=== PATIENT | male | born 1940 | race Caucasian/White ===

== ENCOUNTER 2016-09-25 12:45 | Inpatient (IN) | payer MEDICARE ==
[~2016-09-25] VITALS: Ht 175.3 cm; Wt 82.7 kg
[~2016-09-25 12:45] MED LIST: ASPI81TA81 PO; HYDR-3366 PO; HYDR2TAB PO; METF1000 PO
[2016-10-06] MEDS ORDERED: NEOSTIGMINE 3 MG/3 ML SYR IV ONE (08:18)
[2016-10-06] MEDS ORDERED: PROPOFOL 200 MG/20 ML AMP IV ONE (08:18)
[2016-10-06] MEDS ORDERED: LACTATED RINGER'S 1000 ML INJ 1,000 ML IV ONE (08:22)
[2016-10-06] MEDS ORDERED: PHENYLEPH/NS 1000 MCG/10 ML SYR IV ONE (08:22)
[2016-10-06] MEDS ORDERED: ONDANSETRON HCL 4 MG/2 ML VIAL IV PUSH ONE (08:22)
[2016-10-06] MEDS ORDERED: NORMOSOL R INJ 1,000 ML IV ONE (08:23)
[2016-10-06] MEDS ORDERED: SODIUM CHLORID 0.9% 500 ML INJ 500 ML IV ONE (08:23)
[2016-10-06 09:14] VITALS: BP 108/78; PULSE 95; RESP 18; TEMP 97.6; O2SAT 95
[2016-10-06] MEDS ORDERED: POVIDONE IODINE 5% (ANTISEPSIS KIT) 4 APPLICATIONS EACH NARE PRN (09:15)
[2016-10-06] MEDS ORDERED: ceFAZolin 1,000 MG/NS 100 ML IV SCH ×2 (09:15)
[2016-10-06] MEDS: LACTATED RINGER'S 1000 ML INJ 1,000 ML IV SCH (09:15)
[2016-10-06] MEDS ORDERED: LACTATED RINGER'S 1000 ML IV PRN (09:15)
[2016-10-06] MEDS ORDERED: CHLORHEXIDINE GLUCONATE 2 % 1 PACK (2 CLOTHS) TOPICAL PRN (09:15)
[2016-10-06] MEDS ORDERED: INSULIN HUMAN REGULAR 1,000 UNITS/10 ML VIAL SQ PRN (09:15)
[2016-10-06] MEDS ORDERED: METOPROLOL TARTRATE 25 MG TAB PO PRN (09:15)
[2016-10-06] MEDS ORDERED: SODIUM CHLORID 0.9% 500 ML IV PRN (09:15)
[2016-10-06] MEDS ORDERED: GELFOAM SIZE 100 ONE (13:50)
[2016-10-06] MEDS ORDERED: THROMBIN (TOPICAL) 5,000 UNIT VIAL ONE (13:50)
[2016-10-06] MEDS ORDERED: GENTAMICIN SULFATE 80 MG/2 ML VIAL ONE (13:51)
[2016-10-06] MEDS ORDERED: MIDAZOLAM HCL 2 MG/2 ML VIAL ONE (13:54)
[2016-10-06] MEDS ORDERED: FAMOTIDINE 20 MG/2 ML VIAL ONE (13:55)
[2016-10-06] MEDS ORDERED: fentaNYL CITRATE 250 MCG/5 ML AMP ONE (13:55)
[2016-10-06] MEDS ORDERED: HYDROmorphone HCL PF 2 MG/ML VIAL ONE (13:55)
[2016-10-06] MEDS ORDERED: ACETAMINOPHEN 1000 MG/100 ML VIAL IV ONE (13:56)
[2016-10-06] MEDS ORDERED: LIDOCAINE 1%/EPINEPHrine 1:100,000 SOLN 30 ML VIAL INFIL ONE (15:17)
[2016-10-06] MEDS ORDERED: ceFAZolin INJ 1,000 MG VIAL IV ONE (15:45)
[2016-10-06] MEDS ORDERED: SODIUM CHLORIDE 0.9% FLUSH 5 ML FLUSH IV FLUSH PRN (17:30)
[2016-10-06] MEDS ORDERED: NALOXONE HCL 0.4 MG/ML AMP IV PUSH PRN (17:30)
[2016-10-06] MEDS ORDERED: ONDANSETRON HCL 4 MG/2 ML VIAL IV PUSH PRN (17:30)
[2016-10-06] MEDS ORDERED: GLUCAGON 1 MG/ML VIAL OTHER PRN (17:45)
[2016-10-06] MEDS ORDERED: DEXTROSE 50% IN WATER 50 ML VIAL(D50) IV PRN (17:45)
--- NOTE | 2016-10-06 19:38 | RADRPT ---
EXAM DATE/TIME: 10/06/2016 15:07 [facility] COMPARISON: No previous studies available for comparison. INDICATIONS : Lumbar spine L4-5 PLIF. OR. MEDICAL HISTORY : None. SURGICAL HISTORY : CABG. ENCOUNTER: Initial ACUITY: 1 day PAIN SCORE: Non-responsive. LOCATION: Lumbar L4-5 FINDINGS: 2 views in the operating room show fusion procedure with interbody and posterior instrumentation at L 4/L5. Alignment is within normal limits. No fracture. No evidence of hardware failure. CONCLUSION: Fusion procedure at C4/C5 without evidence of an acute complication. Ari Barnett MD on October 06, 2016 at 19:35 Board Certified Radiologist. This report was verified electronically.
[2016-10-06] MEDS ORDERED: NALOXONE HCL 0.4 MG/ML AMP IV PRN (20:00)
[2016-10-06] MEDS ORDERED: oxyCODONE/ACETAMINOPHEN 5 MG/325 MG TAB PO PRN (20:00)
[2016-10-06] MEDS ORDERED: MORPHINE SULFATE 4 MG/ML INJ IV PRN (20:00)
[2016-10-06] MEDS ORDERED: HYDROmorphone HCL PF 1 MG/ML VIAL IV PRN (20:00)
[2016-10-06] MEDS: 1/2 NS + KCL 20 MEQ INJ 1,000 ML IV SCH (20:05)
[2016-10-06] MEDS ORDERED: *morphine SULFATE 8 MG/ML PERIprocedure ONLY ONE ×2 (20:10→20:22)
[2016-10-06] MEDS ORDERED: DO NOT ADM ANY ANTICOAGULANT DRUGS PRN (20:15)
--- NOTE | 2016-10-06 20:24 | PD.OP ---
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 Bilateral L4-5 decompressive semi-laminectomy, medial facetectomy, foraminotomy 2. Resection large right L4 5 sequestered herniated nucleus pulposus 3. Right L4 5 lysis of adhesions from previous surgery 4. L4 5 interbody fusion, PEEK cage, lamina autograft and demineralized bone matrix. 5. Bilateral L4-5 posterior instrumentation with pedicle screw fixation Anesthesia: Gen. Surgeon: Jono Werner [employer]): [employer] Martinez Operation and Findings: Findings: Extensive adhesions along the dorsal lateral thecal sac at the right L4 5 level at the previous semi-laminectomy site. Large extensive L4 5 sequestered herniated nucleus pulposus causing significant compression on the right ventral lateral thecal sac and exiting L5 nerve root. Significant right L4 5 facet instability with partial facet resection from prior decompressive semi-laminectomy. Procedure in detail The patient was brought to the operating room and general endotracheal anesthesia induced without difficulty Lines were established per Anesthesia Sequential compression devices were in place The patient was positioned prone on the concentric Alexander table with the side bolsters and all extremities appropriately padded Leads for intraoperative neuro monitoring were placed prior to positioning and a baseline study obtained Appropriate timeout procedure was performed with all personnel present and in agreement The lumbar region was shaved with clippers and sterilely prepped and draped 1% Xylocaine with epinephrine was used for local infiltration over the incision site which was made approximately 5.5 cm lateral to the midline at the bilateral level and carried sharply down to the fascia. The fascia was sharply incised and finger dissection was used to separate the normal intermuscular plane at the bilateral L4 5 level, allowing direct palpation of the junction of the and pedicle and transverse process on each side. The entry point for the pedicle screws were determined by anatomic and radiographic landmarks. Using AP and lateral C-arm imaging, the Jamshidi needle was guided through the bilateral L4 and L5 pedicle. The intraoperative C-arm imaging was used to verify appropriate Jamshidi needle placement. The wires were then placed through the Jamshidi needle cannulas, and the cannula was withdrawn. The wires were temporarily clipped away from the operative field. On the right side Lomeli elevator was used for subperiosteal elevation of paraspinous musculature and fascia away from the lamina and spinous processes The deep self-retaining retractor was placed The appropriate levels were verified with intraoperative C-arm The microscope was moved into place and used for the remainder of the procedure including the closure The TPS drill with a 5 mm bone bur followed by the Kerrison rongeur was used to remove the inferior two thirds of the lamina at the cephalad level of the decompression and the superior third of the lamina at the caudal level of the decompression. This was performed starting on the right side, and then working across midline towards the left. The foraminotomy was performed on each side with the 2 and 3 mm Kerrison rongeur. On the side of the cage placement, an additional portion of the medial facet was removed to allow sufficient room for placement of the cage without significant retraction of the thecal sac and exiting nerve root. Hypertrophied ligamentum flavum was elevated away from the thecal sac and exiting nerve roots with the thin ligament dissector and resected with a 15 blade knife and Kerrison rongeur. The thecal sac and exiting nerve root were freed up from surrounding adhesions with the microdissectors and gently retracted medially revealing the underlying disc and annulus. There were extensive adhesions at the right L4 5 lateral thecal sac and exiting right L5 nerve root related to the previous surgical procedure. The extensive amount of careful dissection was required under the microscope to free up these adhesions and resect the ligamentum flavum. Extensive amount of sequestered right L4 5 herniated disc material was noted and was carefully freed up from the ventral thecal sac and exiting right L5 and L4 nerve roots and removed with the micro-biopsy forceps. The right L4 5 annulus was incised with the 11 blade knife and discectomy performed with pituitary biopsy forceps and straight and angled curettes The endplate scrapers were used to decorticate the endplates and any remaining debris was removed with the antibiotic irrigation and suction and pituitary biopsy forceps The appropriate size 8 x 10 mm lordotic PEEK cage was packed with retained lamina cancellus autograft And a small amount of demineralized bone matrix The cage was placed at the L4 5 level with a good fit of the cage. The placement was checked under the microscope and with intraoperative C-arm and felt to be satisfactory. The thecal sac and nerve roots were probed with the long blunt nerve hook and felt to be well decompressed The cannulated 5.5 mm tap was then used to prepare the pedicle screw sites on each side, with the dilators used to protect the surrounding tissue. The appropriate length Spine Wave Sniper percutaneous cannulated pedicle screw attached to the MIS extenders were placed into the bilateral L4 and L5 pedicle using the existing guidewires which were then removed. Pedicle screw placement was checked with intraoperative C-arm imaging and felt to be satisfactory. The percutaneous rods were placed across the pedicle screws on each side. The locking caps were secured with the torque wrench and anti-torque device Compression and alignment were achieved as necessary with the rods and reducers. The entire construct was checked with intraoperative C-arm and felt to be satisfactory The region was well irrigated with antibiotic irrigation The posterior lateral structures at the bilateral L4 5 levels were decorticated with the TPS drill The shavings were left in place, to which was added the remaining autograft and allograft bone which was firmly packed in place for the posterior lateral fusion. The 7 mm flat fluted drain was left in place at the operative side and brought out through a incision at the upper lumbar region and secured to the skin with nylon suture and attached to sterile suction bleeding was carefully controlled with the bipolar forceps The closure was performed with 0 Vicryl interrupted for the deep and superficial fascia, with 3-0 Vicryl for the subcutaneous closure and 4-0 Vicryl running subcuticular closure. Dressings sterile Mastisol, Steri-Strips and Primapore was placed The patient was turned into supine position and taken to recovery room in stable condition All counts were correct at the end of the case Estimated blood loss was 200 cc No specimen was sent to pathology Neuro monitoring was stable during the procedure Jono Werner MD Oct 06, 2016 20:24
[2016-10-06] MEDS: SODIUM CHLORIDE 0.9% FLUSH 5 ML FLUSH IV FLUSH SCH (20:30)
[2016-10-06] MEDS: DOCUSATE SODIUM 100 MG CAP PO SCH (20:35)
[2016-10-06] MEDS: INSULIN ASPART SUPPLEMENTAL SCALE SQ SCH (20:38)
[2016-10-07 00:55] VITALS: BP 119/69; PULSE 73; RESP 18; TEMP 96.8; O2SAT 66
[2016-10-07] MEDS: ACETAMINOPHEN/HYDROcodone 325 MG/10 MG TAB PO PRN ×4 (03:05→20:40)
[2016-10-07 04:00] VITALS: BP 131/69; PULSE 77; RESP 16; TEMP 95.3; O2SAT 100
[2016-10-07] MEDS: PANTOPRAZOLE SOD 40 MG DELAYED RELEASE TAB PO SCH (05:24)
[2016-10-07] MEDS: 1/2 NS + KCL 20 MEQ INJ 1,000 ML IV SCH ×3 (05:25→23:30)
[2016-10-07] MEDS: INSULIN ASPART SUPPLEMENTAL SCALE SQ SCH ×4 (06:42→20:47)
[2016-10-07 08:00] VITALS: BP 119/64; PULSE 70; RESP 18; O2SAT 100
[2016-10-07] MEDS: metFORMIN HCL 500 MG TAB PO SCH ×2 (08:19→17:37)
[2016-10-07] MEDS: DOCUSATE SODIUM 100 MG CAP PO SCH ×2 (08:19→20:39)
[2016-10-07] MEDS: SODIUM CHLORIDE 0.9% FLUSH 5 ML FLUSH IV FLUSH SCH ×2 (08:28→20:40)
[2016-10-07] MEDS: LACTATED RINGER'S 1000 ML INJ 1,000 ML IV SCH (09:15)
[2016-10-07 12:00] VITALS: BP 103/59; PULSE 86; RESP 18; TEMP 96; O2SAT 96
--- NOTE | 2016-10-07 12:35 | HHI.NSPN ---
(Anirudh Mclaughlin) History Chief Complaint: Back pain (Anirudh Mclaughlin) Interval History 10/06: Patient with history of low back pain with lumbar radiculopathy & stenosis and a severe right foot drop. He presented to [facility] for a bilateral L4- 5 decompressive semi-laminectomy, fusion and posterior instrumentation. 10/07: Patient is doing well this afternoon when seen. He does have back pain which he attributes to having just gotten up from the chair and back to the bed. He also endorses numbness and weakness to the right great toe. (Anirudh Mclaughlin) System Review Comments CONSTITUTIONAL: Patient denies any fever or chills. CARDIOVASCULAR: Patient denies any chest pain, palpitations or irregular heartbeat. RESPIRATORY: Patient denies any shortness of breath or productive cough. GASTROINTESTINAL: Patient denies any abdominal pain, nausea, vomiting or bowel incontinence. GENITOURINARY: Patient states he has a Marie catheter. MUSCULOSKELETAL: Patient states he has back pain from just having gotten up from the chair and back to bed. He denies any arm or leg pain. NEUROLOGICAL: Patient states he has numbness & weakness to the right big toe. He denies any headache or dizziness. (Anirudh Mclaughlin) Exam Results Vital Signs Date Time Temp Pulse Resp B/P Pulse Ox O2 Delivery O2 Flow Rate FiO2 10/07/16 09:40 21 10/07/16 08:00 70 18 119/64 100 10/07/16 04:00 95.3 10/06/16 21:01 Nasal Cannula 2 Intake and Output 10/06/16 10/06/16 10/07/16 08:00 16:00 00:00 Intake Total 3000 ml Output Total 1390 ml Balance 1610 ml (Anirudh Mclaughlin) Physical Examination GENERAL: Awake & alert, normal affect, NAD. INTEGUMENTARY: Well-approximated bilateral lateral lumbar surgical incisions w/ steri-strips intact, no active drainage, erythema or streaking, with trace serosanguinous drainage on inside of dressing. EDMUNDO drain insertion site w/o any evident drainage, erythema or streaking. HEENT: Normocephalic, atraumatic. CARDIOVASCULAR: S1S2 w/RRR w/o M/G/R, cap refill < 2 sec, radial & pedal pulses 2+ bilaterally. RESPIRATORY: CTAB w/o W/R/R, equal excursion, nonlaboured, on RA. GASTROINTESTINAL: Rotund, high pitched bowel sounds noted. GENITOURINARY: Marie catheter to BSD w/clear yellow urine. MUSCULOSKELETAL: PEÑA w/o difficulty, no evident deformity, discolouration or clubbing. Back is TTP at surgical incisions. NEUROLOGICAL: AA&O x3 Speech clear & appropriate Sensation grossly intact to BLE except right big toe is decreased Motor strength 5/5 BLE except right foot dorsiflexion is 2+ to 3/5 and big toe is 1/5 (Anirudh Mclaughlin) Lab, Micro, Other Results It is recognised that the "Conclusion" for the lumbar spine XR does say "C4/C5" but should be L4/L5 which is what the images are of. Allergies Coded Allergies Type Severity Reaction Last Updated Verified No Known Allergies 10/01/16 Yes Recent Impressions Lumbar Spine X-Ray 10/06/16 0000 Signed Impressions: Service Date/Time: Thursday, October 06, 2016 15:07 - CONCLUSION: Fusion procedure at C4/C5 without evidence of an acute complication. Ari Barnett MD 10/05//4/176/5/176/5/176/6/ 06:00 18:00 06:00 18:00 06:00 18:00 Intake Total 3480 ml Output Total 1690 ml Balance 1790 ml Intake Oral 480 ml IV Total 600 ml Other 2400 ml Output Urine Total 450 ml Drainage Total 40 ml Estimated Blood Loss 200 ml Other 1000 ml # Voids 1 # Bowel Movements 0 Laboratory Tests Test 10/06/16 09:05 Blood Type O POSITIVE Antibody Screen NEGATIVE Vital Signs Date Time Temp Pulse Resp B/P Pulse Ox O2 Delivery O2 Flow Rate FiO2 10/07/16 09:40 21 10/07/16 08:00 70 18 119/64 100 10/07/16 04:00 95.3 77 16 131/69 100 6/6/17 00:55 96.8 73 18 119/69 66 10/06/16 21:01 98.1 84 16 105/57 97 Nasal Cannula 2 10/06/16 20:45 87 12 117/59 100 Nasal Cannula 2 10/06/16 20:30 82 9 118/57 99 Nasal Cannula 2 137/57 10/06/16 20:15 83 12 115/58 100 Nasal Cannula 3 139/57 10/06/16 20:00 84 17 127/67 100 Nasal Cannula 3 133/59 10/06/16 19:56 81 12 126/64 100 Nasal Cannula 3 139/58 10/06/16 19:45 98.2 78 12 92/55 100 Simple Mask 10 10/06/16 09:14 97.6 95 18 108/78 95 (Anirudh Mclaughlin) Medical Decision Making Impression and Plan Impression: (1) Low back pain with sciatica (2) Lumbar radiculopathy (3) Lumbar canal stenosis (4) Herniated nucleus pulposus, lumbar Severe L4-5 degenerative disc disease and spondylosis Status post previous right L4 5 decompressive semi-laminectomy with facet instability Right L5 radiculopathy with severe sensorimotor deficit, severe right foot drop POD # 1 () s/p: 1. Bilateral L4-5 decompressive semi-laminectomy, medial facetectomy, foraminotomy 2. Resection large right L4 5 sequestered herniated nucleus pulposus 3. Right L4 5 lysis of adhesions from previous surgery 4. L4 5 interbody fusion, PEEK cage, lamina autograft and demineralized bone matrix. 5. Bilateral L4-5 posterior instrumentation with pedicle screw fixation EDMUNDO drain output recorded is 40 mL, appears to have more than that in bulb when seen. Still with right foot drop w/numbness to right great toe Plan: Monitor EDMUNDO drain output Pain control PT eval & tx Marie care (Anirudh Mclaughlin) Attending Statement Patient was seen today by RALF Miranda. Patient's therapy notes, labs, vital signs reviewed by the undersigned. Continue physical therapy Discontinue drain Possible home in a.m. depending on clinical course. (Jono Werner MD) Anirudh Mclaughlin Oct 07, 2016 12:35 Jono Werner MD Oct 07, 2016 18:31
[2016-10-07 16:00] VITALS: BP 125/68; PULSE 93; RESP 18; TEMP 97.2; O2SAT 96
[2016-10-07 19:00] VITALS: BP 111/70; PULSE 91; RESP 16; TEMP 97; O2SAT 98
[2016-10-08] VITALS: BP 144/76; PULSE 53; RESP 16; TEMP 99.5; O2SAT 98
[2016-10-08] MEDS: ACETAMINOPHEN/HYDROcodone 325 MG/10 MG TAB PO PRN ×3 (01:23→16:06)
[2016-10-08 04:00] VITALS: BP 123/62; PULSE 97; RESP 15; TEMP 95.9; O2SAT 98
[2016-10-08] MEDS: PANTOPRAZOLE SOD 40 MG DELAYED RELEASE TAB PO SCH (05:35)
[2016-10-08] MEDS: INSULIN ASPART SUPPLEMENTAL SCALE SQ SCH ×3 (07:00→13:54)
[2016-10-08 07:15] VITALS: BP 147/83; PULSE 80; RESP 20; TEMP 96.7; O2SAT 96
[2016-10-08] MEDS: SODIUM CHLORIDE 0.9% FLUSH 5 ML FLUSH IV FLUSH SCH (08:45)
[2016-10-08] MEDS: LACTATED RINGER'S 1000 ML INJ 1,000 ML IV SCH (08:45)
[2016-10-08] MEDS: 1/2 NS + KCL 20 MEQ INJ 1,000 ML IV SCH (08:45)
[2016-10-08] MEDS: DOCUSATE SODIUM 100 MG CAP PO SCH (08:45)
[2016-10-08] MEDS: metFORMIN HCL 500 MG TAB PO SCH (08:47)
[2016-10-08 10:38] VITALS: O2SAT 98
[2016-10-08 11:53] VITALS: BP 127/61; PULSE 88; RESP 16; TEMP 96.9; O2SAT 94
--- NOTE | 2016-10-08 12:40 | HHI.NSPN ---
(Anirudh Mclaughlin) History Chief Complaint: Back pain (Anirudh Mclaughlin) Interval History 10/06: Patient with history of low back pain with lumbar radiculopathy & stenosis and a severe right foot drop. He presented to [facility] for a bilateral L4- 5 decompressive semi-laminectomy, fusion and posterior instrumentation. 10/07: Patient is doing well this afternoon when seen. He does have back pain which he attributes to having just gotten up from the chair and back to the bed. He also endorses numbness and weakness to the right great toe. 10/08: Patient initially seen with Dr Werner this morning. When seen this afternoon he states he does have pain to his back but it is controlled with medication. He says he has some weakness to the right lower extremity as well. (Anirudh Mclaughlin) System Review Comments CONSTITUTIONAL: Patient states he is nervous. He denies any fever or chills. CARDIOVASCULAR: Patient denies any chest pain, palpitations or irregular heartbeat. RESPIRATORY: Patient denies any shortness of breath or productive cough. GASTROINTESTINAL: Patient denies any abdominal pain, nausea, vomiting or bowel incontinence. GENITOURINARY: Patient states he has a Marie catheter. MUSCULOSKELETAL: Patient states he has back pain with movement. He denies any arm or leg pain. NEUROLOGICAL: Patient states he has numbness & weakness to the right big toe. He denies any headache or dizziness. (Anirudh Mclaughlin) Exam Results Vital Signs Date Time Temp Pulse Resp B/P Pulse Ox O2 Delivery O2 Flow Rate FiO2 10/08/16 11:53 96.9 88 16 127/61 94 10/08/16 10:38 21 10/06/16 21:01 Nasal Cannula 2 Intake and Output 10/07/16 10/07/16 10/07/16 07:59 15:59 23:59 Intake Total 480 ml 1143 ml 480 ml Output Total 300 ml 1470 ml 600 ml Balance 180 ml -327 ml -120 ml (Slope,Anirudh E. DOOR ATTENDANT) Physical Examination GENERAL: Awake & alert, normal affect, NAD. INTEGUMENTARY: Well-approximated bilateral lateral lumbar surgical incisions w/ steri-strips intact, no active drainage, erythema or streaking, with trace serosanguinous drainage on inside of dressing. EDMUNDO drain to bulb suction w/ serosanguinous drainage, insertion site w/o any evident drainage, erythema or streaking. HEENT: Normocephalic, atraumatic. CARDIOVASCULAR: S1S2 w/RRR w/o M/G/R, cap refill < 2 sec, radial & pedal pulses 2+ bilaterally. RESPIRATORY: CTAB w/o W/R/R, equal excursion, nonlaboured, on RA. GASTROINTESTINAL: Rotund, soft, nontender, positive bowel sounds. GENITOURINARY: Marie catheter to BSD w/clear yellow urine. MUSCULOSKELETAL: PEÑA w/o difficulty, no evident deformity, discolouration or clubbing. Back is TTP at surgical incisions. NEUROLOGICAL: AA&O x3 Speech clear & appropriate Sensation grossly intact to BLE except right big toe is decreased Motor strength 5/5 BLE except right foot dorsiflexion is 2+ to 3/5 and big toe is 1/5 (Anirudh Mclaughlin) Medical Decision Making Impression and Plan Impression: (1) Low back pain with sciatica (2) Lumbar radiculopathy (3) Lumbar canal stenosis (4) Herniated nucleus pulposus, lumbar Severe L4-5 degenerative disc disease and spondylosis Status post previous right L4 5 decompressive semi-laminectomy with facet instability Right L5 radiculopathy with severe sensorimotor deficit, severe right foot drop POD #2 () s/p: 1. Bilateral L4-5 decompressive semi-laminectomy, medial facetectomy, foraminotomy 2. Resection large right L4 5 sequestered herniated nucleus pulposus 3. Right L4 5 lysis of adhesions from previous surgery 4. L4 5 interbody fusion, PEEK cage, lamina autograft and demineralized bone matrix. 5. Bilateral L4-5 posterior instrumentation with pedicle screw fixation Stable neurological exam, right foot drop w/numbness to right great toe still present Physical Therapy recommends acute inpatient rehab Plan: D/C EDMUNDO drain D/C Marie catheter OT eval & tx Pain control Continue PT Plan to d/c to [facility] when bed is available (Anirudh Mclaughlin) Attending Statement The exam, history, and the medical decision-making described in the above note were completed with the assistance of the mid-level provider. I reviewed and agree with the findings presented. I attest that I had a [id number] encounter with the patient on the same day, and personally performed and documented my assessment and findings in the medical record. No change in foot drop tody. D/C drain. OK for rehab (Jono Werner MD) Anirudh Mclaughlin Oct 08, 2016 12:40 Jono Werner MD Nov 04, 2016 17:29
[2016-10-08] MEDS ORDERED: PANT40TA3 PO (13:57)
[2016-10-08] MEDS ORDERED: DOCU1CAP39 PO (13:57)
--- NOTE | 2016-10-08 14:03 | HHI.DCPOC ---
Discharge Care Plan Diagnosis: (1) Lumbar canal stenosis (2) Herniated nucleus pulposus, lumbar (3) Lumbar radiculopathy (4) Foot drop (5) Low back pain with sciatica Your Health Problems Are: Incision/Drains Goals to Promote Your Health * To prevent worsening of your condition and complications * To maintain your health at the optimal level Directions to Meet Your Goals Take your medications as prescribed Follow your dietary instruction Follow activity as directed Keep your appointments as scheduled Take your immunizations and boosters as scheduled If your symptoms worsen call your PCP, if no PCP go to Urgent Care Center or Emergency Room Smoking is Dangerous to Your Health. Avoid second hand smoke Call the 24-hour hour crisis hotline for domestic abuse at Wear the LSO brace when out of bed walking or sitting in a chair. You do not need to have it on when in bed. No lifting, bending, reaching, pulling or other strenuous activity. Keep the dressing to the surgical site clean & dry for the next 7 days. You may shower but cover it with plastic to prevent it from getting wet. If it does get wet dry it gently with a hairdryer. After the 7 days you may remove the outer dressing but leave the steri-strips in place. Let them fall off as you shower. Avoid any products containing aspirin or NSAIDs (ibuprofen, naproxen, Naprosyn, Aleve, Advil, Motrin, etc.). Anirudh Mclaughlin Oct 08, 2016 14:03
--- NOTE | 2016-10-08 14:11 | HHI.DS ---
Discharge Summary Admission Date Oct 06, 2016 at 08:43 Discharge Date: Oct 08, 2016 Admitting Diagnosis (1) Lumbar radiculopathy Diagnosis: Principal ICD Code: M54.16 (2) Herniated nucleus pulposus, lumbar Diagnosis: Secondary ICD Code: M51.26 (3) Lumbar canal stenosis Diagnosis: Secondary ICD Code: M48.06 (4) Low back pain with sciatica Diagnosis: Secondary ICD Code: M54.40 (5) Foot drop Diagnosis: Secondary ICD Code: M21.379 Procedures : 1. Bilateral L4-5 decompressive semi-laminectomy, medial facetectomy, foraminotomy 2. Resection large right L4 5 sequestered herniated nucleus pulposus 3. Right L4 5 lysis of adhesions from previous surgery 4. L4 5 interbody fusion, PEEK cage, lamina autograft and demineralized bone matrix. 5. Bilateral L4-5 posterior instrumentation with pedicle screw fixation Hospital Course Patient presented to [facility] for a L4-5 PLIF on due to lumbar stenosis & radiculopathy. Post-operatively he was admitted to a regular med/ surg floor. Physical Therapy evaluated the patient on and recommended that he have intensive inpatient rehab. He was accepted at [facility] and was therefore discharged on . At the time of discharge he was ambulating using a wheeled walker with assistance, tolerating a diet and his pain was controlled with medication. Pt Condition on Discharge: Good Discharge Disposition: Rehab Inpatient Discharge Instructions DIET: Follow Instructions for: As Tolerated, No Restrictions ACTIVITIES You can perform: Weight Bearing As Audrey, Shower Only-No Bath Activities to Avoid: Lifting/Bending, Strenuous Activity ADDITIONAL Activity Instructio: Wear the LSO brace when out of bed walking or sitting in a chair. You do not need to have it on when in bed. Additional Information Wear the LSO brace when out of bed walking or sitting in a chair. You do not need to have it on when in bed. No lifting, bending, reaching, pulling or other strenuous activity. Keep the dressing to the surgical site clean & dry for the next 7 days. You may shower but cover it with plastic to prevent it from getting wet. If it does get wet dry it gently with a hairdryer. After the 7 days you may remove the outer dressing but leave the steri-strips in place. Let them fall off as you shower. Avoid any products containing aspirin or NSAIDs (ibuprofen, naproxen, Naprosyn, Aleve, Advil, Motrin, etc.). Anirudh Mclaughlin Oct 08, 2016 14:10
[2016-10-08 16:03] VITALS: BP 136/68; PULSE 89; RESP 16; TEMP 96.2; O2SAT 100
[2016-10-13] MEDS ORDERED: PANT40TA3 PO (08:43)
[2016-10-13] MEDS ORDERED: HYDR-3366 PO (08:43)
[2016-10-13] MEDS ORDERED: METO25TA3 PO (08:43)
[2016-10-13] MEDS ORDERED: DOCU1CAP39 PO (08:43)
[2016-10-13] MEDS ORDERED: METF1000 PO (08:43)
[2016-10-13] MEDS ORDERED: ACET1TAB86 PO (08:43)
== END 2016-10-08 16:30 | DRG 460 ==
LOC: HSDI 10-06 08:43 → N06A 10-06 21:28
PROVIDERS: ADMIT Neurological Surgery; ATTEND Neurological Surgery
PROC: 0ST20ZZ Resection of Lumbar Vertebral Disc, Open Approach (ICD-10-PCS; 2016-10-06)
PROC: 00NY0ZZ Release Lumbar Spinal Cord, Open Approach (ICD-10-PCS; 2016-10-06)
PROC: 4A11X4G Monitoring of Peripheral Nervous Electrical Activity, Intraoperative, External Approach (ICD-10-PCS; 2016-10-06)
PROC: 0SG00A1 (ICD-10-PCS; principal; 2016-10-06 13:58)
DX: M51.16 Intervertebral disc disorders with radiculopathy, lumbar region (principal); G96.12 Meningeal adhesions (cerebral) (spinal); E11.9 Type 2 diabetes mellitus without complications; Z79.84 Long term (current) use of oral hypoglycemic drugs; M48.06 Spinal stenosis, lumbar region; M47.9 Spondylosis, unspecified; M21.371 Foot drop, right foot; M54.40 Lumbago with sciatica, unspecified side; I25.10 Atherosclerotic heart disease of native coronary artery without angina pectoris; I25.2 Old myocardial infarction; Z95.1 Presence of aortocoronary bypass graft; Z79.82 Long term (current) use of aspirin; Z85.038 Personal history of other malignant neoplasm of large intestine
CPT/HCPCS: 72100; 76000; 82948; 86850; 86900; 86901; 94150; C1713; J0131; J0690; J1170; J1580; J1815; J2250; J2270; J2370; J2405; J2710; J3010; J7040; J7120; L0484

== ENCOUNTER → 2016-10-01 | Outpatient (CLI) | payer MEDICARE ==
[~2016-10-01] MED LIST changes: +ACET1TAB86 PO; +ALPR.5 PO; +ATOR20TA15; +DOCU1CAP39 PO; +FLUO0.05; +METO25TA3 PO; +PANT40TA3 PO
[2016-10-01 09:17] LABS: HEMATOCRIT 43.4 % (39.0-51.0); MEAN CELL VOLUME 89.3 FL (80.0-100.0); MEAN CORPUSCULAR HEMOGLOBIN 30.6 PG (27.0-34.0); MEAN CORPUSCULAR HGB CONC 34.3 % (32.0-36.0); PLATELET COUNT 320 TH/MM3 (150-450); RED BLOOD COUNT 4.86 MIL/MM3 (4.50-5.90); RED CELL DISTRIBUTION WIDTH 14.9 % (11.6-17.2); REVIEW FLAG FINAL; WHITE BLOOD COUNT 10.2 TH/MM3 (4.0-11.0)
[2016-10-01 09:29] LABS: APTT (PATIENT) 25.7 SEC (24.3-30.1); PROTHROMBIN TIME - PATIENT 11.4 SEC (9.8-11.6)
--- NOTE | 2016-10-01 10:21 | RADRPT ---
EXAM DATE/TIME: 10/01/2016 09:18 [facility] COMPARISON: No previous studies available for comparison. INDICATIONS : Evaluate for pneumonia, pneumothorax or communicable disease.Pt. having lumbar surgery 10-06-16. MEDICAL HISTORY : None. SURGICAL HISTORY : CABG. ENCOUNTER: Initial ACUITY: 1 day PAIN SCORE: 0/10 LOCATION: Bilateral chest FINDINGS: PA and lateral views of the chest. Median sternotomy wires. The lungs are clear. Cardiomediastinal si lhouette within normal limits. No evidence of pleural effusion or pneumothorax. Flowing anterior ossi fication of all of the mid to lower thoracic vertebral bodies indicating diffuse idiopathic skeletal hyperostosis. CONCLUSION: No acute cardiopulmonary disease identified. Fred Fagan MD on October 01, 2016 at 10:18 Board Certified Radiologist. This report was verified electronically.
[2016-10-01 12:05] LABS: BICARBONATE 28.9 MEQ/L (21.0-32.0); POTASSIUM 4.1 MEQ/L (3.5-5.1)
--- NOTE | 2016-10-02 12:11 | EKG ---
Date Performed: 10/01/2016 Time Performed: 08:21:52 PTAGE: 76 years EKG: Sinus rhythm BORDERLINE LEFT AXIS DEVIATION BORDERLINE ECG Compared to prior tracing no significant change DOCTOR: Florentin Jasso Interpretating Date/Time 10/02/2016 12:10:11
== END ==
LOC: CPRE 08:05
PROVIDERS: ATTEND Neurological Surgery
DX: Z01.810 Encounter for preprocedural cardiovascular examination (principal); Z01.811 Encounter for preprocedural respiratory examination; Z01.812 Encounter for preprocedural laboratory examination; Z01.818 Encounter for other preprocedural examination; R94.31 Abnormal electrocardiogram [ECG] [EKG]; M21.379 Foot drop, unspecified foot
CPT/HCPCS: 36415; 71020; 80048; 85027; 85610; 85730; 93005

== ENCOUNTER 2016-11-17 11:35 | Emergency (ER) | payer MEDICARE ==
[~2016-11-17] VITALS: Ht 175.3 cm; Wt 83.0 kg
[~2016-11-17 11:35] MED LIST changes: -ALPR.5 PO; -ASPI81TA81 PO; -ATOR20TA15; -DOCU1CAP39 PO; -FLUO0.05; -HYDR2TAB PO
[2016-11-17 11:37] VITALS: BP 143/62; PULSE 104; RESP 18; TEMP 97.8; O2SAT 99
[2016-11-17] MEDS ORDERED: ASPI-110 PO (12:22)
[2016-11-17] MEDS ORDERED: MECLIZINE HCL 25 MG TAB PO ONE (12:45)
[2016-11-17] MEDS ORDERED: SODIUM CHLORIDE 0.9% FLUSH 10 ML FLUSH IVF PRN (12:45)
[2016-11-17 13:16] LABS: AUTOMATED NEUTROPHIL # 6.5 TH/MM3 (1.8-7.7); BASOPHIL # 0.1 TH/MM3 (0-0.2); BASOPHIL % 0.8 % (0.0-2.0); EOSINOPHIL # 0.3 TH/MM3 (0-0.4); EOSINOPHIL % 3.7 % (0.0-4.0); HEMATOCRIT 37.3 % (39.0-51.0); LYMPH % 13.2 % (9.0-44.0); LYMPHOCYTE # 1.2 TH/MM3 (1.0-4.8); MEAN CELL VOLUME 91.4 FL (80.0-100.0); MEAN CORPUSCULAR HEMOGLOBIN 29.6 PG (27.0-34.0); MEAN CORPUSCULAR HGB CONC 32.4 % (32.0-36.0); MONO % 9.2 % (0.0-8.0); NEUT % 73.1 % (16.0-70.0); PLATELET COUNT 293 TH/MM3 (150-450); RED BLOOD COUNT 4.09 MIL/MM3 (4.50-5.90); RED CELL DISTRIBUTION WIDTH 14.2 % (11.6-17.2); WHITE BLOOD COUNT 8.8 TH/MM3 (4.0-11.0)
[2016-11-17 13:21] LABS: BACTERIA, URINE OCC /hpf; BLOOD, URINE NEG (NEG); COMMENT (UR) CULT NOT INDICATED; CULTURE IF INDICATED CULT NOT INDICATED; GLUCOSE,URINE 150 mg/dL (NEG); HYALINE CAST, URINE 1 /lpf (RARE); KETONE, URINE NEG (NEG); MUCUS URINE FEW /lpf (OCC); NITRITE,URINE NEG (NEG); SQUAMOUS EPITHELIAL CELL URINE 2 /hpf (0-5); URINE COLOR YELLOW (YELLW/STRAW)
[2016-11-17 13:30] LABS: ANION GAP 6 MEQ/L (5-15); AST (GOT) 14 U/L (15-37); BICARBONATE 27.9 MEQ/L (21.0-32.0); BLOOD UREA NITROGEN 17 MG/DL (7-18); CHLORIDE 106 MEQ/L (98-107); GLOMERULAR FILTRATION RATE 74 ML/MIN (>89); MAGNESIUM 1.6 MG/DL (1.5-2.5); POTASSIUM 3.8 MEQ/L (3.5-5.1); SODIUM (NA) 140 MEQ/L (136-145)
[2016-11-17 13:31] VITALS: BP_SYST 116; BP_SYST 129; BP_SYST 149; BP_DIAS 60; BP_DIAS 62; BP_DIAS 72
--- NOTE | 2016-11-17 13:32 | PD ---
HPI Chief Complaint: Dizziness Time Seen by Provider: 12:45 Travel History International Travel<30 days: No Contact w/Intl Traveler<30days: No Traveled to known affect area: No History of Present Illness HPI Patient is a 76-year-old male presenting to emergency evaluation of dizziness. Patient states since Thursday he's had continuous sensation of the room spinning. He reports feeling fatigued, with decreased activity tolerance. He states that he has a mild headache in the front of his head but denies any visual changes, nausea, vomiting, abdominal pain, chest pain. He does have a history of vertigo but states it would normally last 10-15 minutes. It has not improved at all since it started. PFSH Past Medical History Arthritis: No Asthma: No Autoimmune Disease: No Blood Disorders: No Anxiety: No Depression: No Heart Rhythm Problems: No Cancer: Yes (COLON CA) Cardiac Catheterization: Yes Cardiovascular Problems: Yes High Cholesterol: Yes Chemotherapy: Yes (2005) Chest Pain: Yes (before CABG) Congestive Heart Failure: No COPD: No Cerebrovascular Accident: No Coronary Artery Disease: Yes Diabetes: Yes Patient Takes Glucophage: Yes Diminished Hearing: No Gastrointestinal Disorders: Yes GERD: No Genitourinary: Yes (incontinence) Hepatitis: No Hiatal Hernia: No Hypertension: Yes Immune Disorder: No Kidney Stones: No Musculoskeletal: Yes Neurologic: Yes (numbness and pain radiating down to toes, right foot drop ) Psychiatric: No Reproductive: No Respiratory: No Immunizations Current: Yes Migraines: No Myocardial Infarction: No Radiation Therapy: Yes (2005) Renal Failure: No Seizures: No Sickle Cell Disease: No Sleep Apnea: No Thyroid Disease: No Ulcer: No PNEUMOCCOCAL Vaccine (Year): 1 Past Surgical History Abdominal Surgery: Yes (LAR WITH HX OF COLOSTOMY) AICD: No Arteriovenous Shunt: No Body Medical Devices: STERNAL WIRES Cardiac Surgery: Yes (CABG 10 years ago) Coronary Artery Bypass Graft: Yes (X3) Ear Surgery: No Endocrine Surgery: No Eye Surgery: Yes (bilateral CATARACTS sx) Genitourinary Surgery: No Insulin Pump: No Joint Replacement: No Neurologic Surgery: Yes (L4-5 decompressive semi-lami w/ facet instability) Oral Surgery: No Pacemaker: No Thoracic Surgery: No Tonsillectomy: Yes (SINCE CHILD ) Other Surgery: Yes (COLON RESECTION 2005 WITH COLOSTOMY AND REVERSAL.) Social History Alcohol Use: Yes (occasionally) Tobacco Use: No Substance Use: No Allergies-Medications (Allergen,Severity, Reaction): Coded Allergies: No Known Allergies (Verified , 10/22/16) Reported Meds & Prescriptions Reported Meds & Active Scripts Active Eq Acetaminophen (Acetaminophen) 325 Mg Tab 650 Mg PO Q4H PRN [place] (Hydrocodone-Acetaminophen) 10-325 Mg Tab 1 Tab PO Q6H PRN Metformin (Metformin HCl) 1,000 Mg Tab 1,000 Mg PO BIDPC With meals Reported Aspirin 81 (Aspirin) 81 Mg Tabdr 81 Mg PO DAILY Review of Systems Except as stated in HPI: all other systems reviewed are Neg General / Constitutional: Positive: Other (fatigue), No: Fever, Chills Eyes: No: Visual changes HENT: Positive: Headaches Cardiovascular: Positive: Other (decreased activity tolerance), No: Chest Pain or Discomfort Respiratory: No: Shortness of Breath Gastrointestinal: No: Nausea, Vomiting, Abdominal Pain Musculoskeletal: No: Myalgias Neurologic: Positive: Dizziness, Headache, No: Focal Abnormalities, Change in Mentation, Slurred Speech, Sensory Disturbance Physical Exam Narrative GENERAL: Well-developed, well-nourished, well-appearing elderly gentleman. SKIN: Warm and dry. HEAD: Atraumatic. Normocephalic. EYES: Pupils equal and round. No scleral icterus. No injection or drainage. ENT: No nasal bleeding or discharge. Mucous membranes pink and moist. NECK: Trachea midline. No JVD. CARDIOVASCULAR: Regular rate and rhythm. RESPIRATORY: No accessory muscle use. Clear to auscultation. Breath sounds equal bilaterally. GASTROINTESTINAL: Abdomen soft, non-tender, nondistended. Hepatic and splenic margins not palpable. MUSCULOSKELETAL: Extremities without clubbing, cyanosis, or edema. No obvious deformities. NEUROLOGICAL: Awake and alert. No obvious cranial nerve deficits. Motor grossly within normal limits. Five out of 5 muscle strength in the arms and legs. Normal speech. PSYCHIATRIC: Appropriate mood and affect; insight and judgment normal. Data Data Last Documented VS Vital Signs Date Time Temp Pulse Resp B/P Pulse Ox O2 Delivery O2 Flow Rate FiO2 11/17/16 13:31 92 149/72 96 129/62 98 116/60 11/17/16 12:48 Room Air 11/17/16 11:37 97.8 18 99 Orders Electrocardiogram (11/17/16 ) Electrocardiogram (11/17/16 12:39) Complete Blood Count With Diff (11/17/16 12:39) Comprehensive Metabolic Panel (11/17/16 12:39) Magnesium (Mg) (11/17/16 12:39) Ckmb (Isoenzyme) Profile (11/17/16 12:39) Troponin I (11/17/16 12:39) Act Partial Throm Time (Ptt) (11/17/16 12:39) Prothrombin Time / Inr (Pt) (11/17/16 12:39) Urinalysis - C+S If Indicated (11/17/16 12:39) Ct Brain W/O Iv Contrast(Rout) (11/17/16 12:39) Ecg Monitoring (11/17/16 12:39) Iv Access Insert/Monitor (11/17/16 12:39) Oximetry (11/17/16 12:39) Meclizine (Antivert) (11/17/16 12:45) Sodium Chloride 0.9% Flush (Ns Flush) (11/17/16 12:45) Orthostatic Vital Signs (11/17/16 12:39) Labs Laboratory Tests Test 11/17/16 11/17/16 12:40 12:55 White Blood Count 8.8 TH/MM3 Red Blood Count 4.09 MIL/MM3 Hemoglobin 12.1 GM/DL Hematocrit 37.3 % Mean Corpuscular Volume 91.4 FL Mean Corpuscular Hemoglobin 29.6 PG Mean Corpuscular Hemoglobin 32.4 % Concent Red Cell Distribution Width 14.2 % Platelet Count 293 TH/MM3 Mean Platelet Volume 8.8 FL Neutrophils (%) (Auto) 73.1 % Lymphocytes (%) (Auto) 13.2 % Monocytes (%) (Auto) 9.2 % Eosinophils (%) (Auto) 3.7 % Basophils (%) (Auto) 0.8 % Neutrophils # (Auto) 6.5 TH/MM3 Lymphocytes # (Auto) 1.2 TH/MM3 Monocytes # (Auto) 0.8 TH/MM3 Eosinophils # (Auto) 0.3 TH/MM3 Basophils # (Auto) 0.1 TH/MM3 CBC Comment DIFF FINAL Differential Comment Prothrombin Time 11.1 SEC Prothromb Time International 1.0 RATIO Ratio Activated Partial 25.5 SEC Thromboplast Time Sodium Level 140 MEQ/L Potassium Level 3.8 MEQ/L Chloride Level 106 MEQ/L Carbon Dioxide Level 27.9 MEQ/L Anion Gap 6 MEQ/L Blood Urea Nitrogen 17 MG/DL Creatinine 0.99 MG/DL Estimat Glomerular Filtration 74 ML/MIN Rate Random Glucose 205 MG/DL Calcium Level 8.5 MG/DL Magnesium Level 1.6 MG/DL Total Bilirubin 0.3 MG/DL Aspartate Amino Transf 14 U/L (AST/SGOT) Alanine Aminotransferase 15 U/L (ALT/SGPT) Alkaline Phosphatase 112 U/L Total Creatine Kinase 83 U/L Troponin I LESS THAN 0.02 NG/ML Total Protein 6.1 GM/DL Albumin 2.9 GM/DL Urine Color YELLOW Urine Turbidity CLEAR Urine pH 5.0 Urine Specific [place] 1.024 Urine Protein TRACE mg/dL Urine Glucose (UA) 150 mg/dL Urine Ketones NEG mg/dL Urine Occult Blood NEG Urine Nitrite NEG Urine Bilirubin NEG Urine Urobilinogen LESS THAN 2.0 MG/DL Urine Leukocyte Esterase SMALL Urine RBC LESS THAN 1 /hpf Urine WBC 5 /hpf Urine Squamous Epithelial 2 /hpf Cells Urine Bacteria OCC /hpf Urine Hyaline Casts 1 /lpf Urine Mucus FEW /lpf Microscopic Urinalysis Comment CULT NOT INDICATED MDM Medical Decision Making Medical Screen Exam Complete: Yes Emergency Medical Condition: Yes Interpretation(s) Last Impressions Head CT 11/17/16 1239 Signed Impressions: Service Date/Time: Thursday, November 17, 2016 13:58 - CONCLUSION: Normal examination. Ethan Tierney MD Laboratory Tests Test 11/17/16 11/17/16 12:40 12:55 White Blood Count 8.8 TH/MM3 Red Blood Count 4.09 MIL/MM3 Hemoglobin 12.1 GM/DL Hematocrit 37.3 % Mean Corpuscular Volume 91.4 FL Mean Corpuscular Hemoglobin 29.6 PG Mean Corpuscular Hemoglobin 32.4 % Concent Red Cell Distribution Width 14.2 % Platelet Count 293 TH/MM3 Mean Platelet Volume 8.8 FL Neutrophils (%) (Auto) 73.1 % Lymphocytes (%) (Auto) 13.2 % Monocytes (%) (Auto) 9.2 % Eosinophils (%) (Auto) 3.7 % Basophils (%) (Auto) 0.8 % Neutrophils # (Auto) 6.5 TH/MM3 Lymphocytes # (Auto) 1.2 TH/MM3 Monocytes # (Auto) 0.8 TH/MM3 Eosinophils # (Auto) 0.3 TH/MM3 Basophils # (Auto) 0.1 TH/MM3 CBC Comment DIFF FINAL Differential Comment Prothrombin Time 11.1 SEC Prothromb Time International 1.0 RATIO Ratio Activated Partial 25.5 SEC Thromboplast Time Sodium Level 140 MEQ/L Potassium Level 3.8 MEQ/L Chloride Level 106 MEQ/L Carbon Dioxide Level 27.9 MEQ/L Anion Gap 6 MEQ/L Blood Urea Nitrogen 17 MG/DL Creatinine 0.99 MG/DL Estimat Glomerular Filtration 74 ML/MIN Rate Random Glucose 205 MG/DL Calcium Level 8.5 MG/DL Magnesium Level 1.6 MG/DL Total Bilirubin 0.3 MG/DL Aspartate Amino Transf 14 U/L (AST/SGOT) Alanine Aminotransferase 15 U/L (ALT/SGPT) Alkaline Phosphatase 112 U/L Total Creatine Kinase 83 U/L Troponin I LESS THAN 0.02 NG/ML Total Protein 6.1 GM/DL Albumin 2.9 GM/DL Urine Color YELLOW Urine Turbidity CLEAR Urine pH 5.0 Urine Specific [place] 1.024 Urine Protein TRACE mg/dL Urine Glucose (UA) 150 mg/dL Urine Ketones NEG mg/dL Urine Occult Blood NEG Urine Nitrite NEG Urine Bilirubin NEG Urine Urobilinogen LESS THAN 2.0 MG/DL Urine Leukocyte Esterase SMALL Urine RBC LESS THAN 1 /hpf Urine WBC 5 /hpf Urine Squamous Epithelial 2 /hpf Cells Urine Bacteria OCC /hpf Urine Hyaline Casts 1 /lpf Urine Mucus FEW /lpf Microscopic Urinalysis Comment CULT NOT INDICATED Vital Signs Date Time Temp Pulse Resp B/P Pulse Ox O2 Delivery O2 Flow Rate FiO2 11/17/16 12:48 Room Air 11/17/16 11:37 97.8 104 18 143/62 99 Differential Diagnosis Cardiac arrhythmia versus CVA versus TIA versus vertigo versus metabolic abnormality versus other Narrative Course Patient is a 76-year-old male presenting for evaluation of dizziness which she describes as room spinning since Thursday. Patient presented to emergency department in private vehicle which he drove himself. He is alert with no focal neurological deficits. Patient's vital signs are stable, labs and imaging ordered and pending. Meclizine given. EKG shows sinus rhythm with a rate of 85 CT scan of brain is negative abnormality CBC with no acute issues identified Chemistries unremarkable, cardiac enzymes are negative 1 set Urinalysis without evidence of urinary tract infection. Coags are unremarkable Orthostatic vital signs are positive Patient reports improvement in his symptoms after administration of meclizine. He was encouraged to keep his follow-up appointment with his primary doctor on . He was encouraged to change positions slowly, maintain adequate fluid intake. He did report that he is not sleeping at night, waking up every 15 minutes which is likely the reason he is feeling so fatigued. He states the insomnia has been going on for approximately one week. He was advised to discuss this with his primary doctor on . Patient will be provided with a prescription for meclizine, he was encouraged to take it 3 times a day as needed. He was encouraged return to emergency department for any new or worsening symptoms. Patient verbalized understanding of instructions. Patient stable for discharge. Diagnosis Primary Impression: Vertigo Referrals: Primary Care Physician 3 days Patient Instructions: General Instructions, Vertigo (ED) Additional Instructions: Maintain adequate fluid intake Change positions slowly Follow-up with your doctor on as scheduled Return to emergency department for any new or worsening symptoms Take medications as directed and as needed Med/Other Pt SpecificInfo: Prescription(s) given Scripts Meclizine 25 Mg Tab25 Mg PO TID PRN (VERTIGO) 10 Days Ref 0 Prov:Alba Mehta 11/17/16 Disposition: 01 DISCHARGE HOME Condition: Stable Alba Mehta Nov 17, 2016 13:31
[2016-11-17 13:34] LABS: APTT (PATIENT) 25.5 SEC (24.3-30.1); PROTHROMBIN TIME - PATIENT 11.1 SEC (9.8-11.6)
[2016-11-17 13:35] LABS: ALKALINE PHOSPHATASE 112 U/L (45-117); ALT (GPT) 15 U/L (12-78); CREATINE KINASE 83 U/L (39-308); TOTAL BILIRUBIN ADULT 0.3 MG/DL (0.2-1.0)
--- NOTE | 2016-11-17 14:14 | RADRPT ---
EXAM DATE/TIME: 11/17/2016 13:58 [facility] COMPARISON: CT BRAIN W/O CONTRAST, May 13, 2012, 11:43. INDICATIONS : Dizzy for 2 days RADIATION DOSE: 46.36 CTDIvol (mGy) MEDICAL HISTORY : Cardiovascular disease. Hypertension. Carcinoma, rectal. SURGICAL HISTORY : CABG ENCOUNTER: Initial ACUITY: 2 days PAIN SCALE: 0/10 LOCATION: cranial TECHNIQUE: Multiple contiguous axial images were obtained of the head. Using automated exposure control and adj ustment of the mA and/or kV according to patient size, radiation dose was kept as low as reasonably a chievable to obtain optimal diagnostic quality images. DICOM format image data is available electro nically for review and comparison. FINDINGS: CEREBRUM: The ventricles are normal for age. No evidence of midline shift, mass lesion, hemorrhage or acute in farction. No extra-axial fluid collections are seen. POSTERIOR FOSSA: The cerebellum and brainstem are intact. The 4th ventricle is midline. The cerebellopontine angle i s unremarkable. EXTRACRANIAL: The visualized portion of the orbits is intact. SKULL: The calvaria is intact. No evidence of skull fracture. CONCLUSION: Normal examination. Ethan Tierney MD on November 17, 2016 at 14:12 Board Certified Radiologist. This report was verified electronically.
[2016-11-17 14:32] LABS: HEMO FLAGS DIFF FINAL
[2016-11-17] MEDS ORDERED: MECL-62 PO (14:51)
--- NOTE | 2016-11-18 19:15 | EKG ---
Date Performed: 11/17/2016 Time Performed: 12:22:42 PTAGE: 76 years EKG: Sinus rhythm WITH MARKED SINUS ARRHYTHMIA BORDERLINE LEFT AXIS DEVIATION NONSPECIFIC T-WAVE ABNORMALITY BORDERLIN E ECG PREVIOUS TRACING : 10/01/2016 08.21 Compared to prior tracing no significant change DOCTOR: Florentin Jasso Interpretating Date/Time 11/18/2016 19:14:54
[2016-11-19] MEDS ORDERED: ACE-52 (14:17)
== END 2016-11-17 15:50 | disposition home or self-care (01) ==
LOC: NEPE 11:35
DX: R42 Dizziness and giddiness (principal); R51 Headache; G47.00 Insomnia, unspecified; R94.31 Abnormal electrocardiogram [ECG] [EKG]; I10 Essential (primary) hypertension; E11.9 Type 2 diabetes mellitus without complications; E78.00 Pure hypercholesterolemia, unspecified; Z79.84 Long term (current) use of oral hypoglycemic drugs; Z86.79 Personal history of other diseases of the circulatory system; Z87.19 Personal history of other diseases of the digestive system; Z87.448 Personal history of other diseases of urinary system; Z87.39 Personal history of other diseases of the musculoskeletal system and connective tissue; Z86.69 Personal history of other diseases of the nervous system and sense organs; Z85.038 Personal history of other malignant neoplasm of large intestine
CPT/HCPCS: 70450; 80053; 81001; 82550; 83735; 84484; 85025; 85610; 85730; 93005; 99285

== ENCOUNTER 2017-08-24 09:44 | Observation (INO) | payer MEDICARE ==
[2017-08-24] VITALS (10 sets, daily range): BP systolic 116–156; BP diastolic 64–88; PULSE 64–92; RESP 16–20; TEMP 97.6–98.2; O2SAT 95–99
[~2017-08-24] VITALS: Ht 175.3 cm; Wt 90.0 kg
[~2017-08-24 09:44] MED LIST changes: +ACE-52; -ACET1TAB86 PO; +ACET325T15 PO; +ASPI1TAB57 PO; +MECL-62 PO; -METO25TA3 PO; -PANT40TA3 PO
[2017-08-24] MEDS ORDERED: IOHEXOL 350 MG/ML 10 ML VIAL (for RAD DIAG) IVCONTRAST ONE (09:45)
[2017-08-24] MEDS ORDERED: SODIUM CHLORIDE 0.9% FLUSH 10 ML FLUSH IVF PRN (10:15)
--- NOTE | 2017-08-24 10:48 | RADRPT ---
EXAM DATE/TIME: 08/24/2017 10:18 [facility] COMPARISON: No previous studies available for comparison. INDICATIONS : Short of breath, lethargic MEDICAL HISTORY : Cardiovascular disease. SURGICAL HISTORY : CABG. ENCOUNTER: Initial ACUITY: 1 day PAIN SCORE: 0/10 LOCATION: Bilateral chest FINDINGS: A single view of the chest demonstrates the lungs to be symmetrically aerated without evidence of mas s, infiltrate or effusion. The cardiomediastinal contours are unremarkable. The patient is status po st median sternotomy for bypass grafting procedure. The bony thorax is intact. There are overlying el ectrocardiogram leads. CONCLUSION: No acute disease. Trenton Griffiths MD on August 24, 2017 at 10:43 Board Certified Radiologist. This report was verified electronically.
[2017-08-24 10:53] LABS: AUTOMATED NEUTROPHIL # 5.6 TH/MM3 (1.8-7.7); BASOPHIL # 0.1 TH/MM3 (0-0.2); BASOPHIL % 1.2 % (0.0-2.0); EOSINOPHIL # 0.3 TH/MM3 (0-0.4); EOSINOPHIL % 4.2 % (0.0-4.0); HEMATOCRIT 43.5 % (39.0-51.0); HEMOGLOBIN 14.6 GM/DL (13.0-17.0); LYMPH % 16.3 % (9.0-44.0); LYMPHOCYTE # 1.4 TH/MM3 (1.0-4.8); MEAN CELL VOLUME 87.6 FL (80.0-100.0); MEAN CORPUSCULAR HEMOGLOBIN 29.4 PG (27.0-34.0); MEAN CORPUSCULAR HGB CONC 33.5 % (32.0-36.0); MEAN PLATELET VOLUME 9.4 FL (7.0-11.0); MONO % 10.1 % (0.0-8.0); MONOCYTE # 0.8 TH/MM3 (0-0.9); NEUT % 68.2 % (16.0-70.0); PLATELET COUNT 323 TH/MM3 (150-450); RED BLOOD COUNT 4.97 MIL/MM3 (4.50-5.90); RED CELL DISTRIBUTION WIDTH 14.9 % (11.6-17.2); WHITE BLOOD COUNT 8.3 TH/MM3 (4.0-11.0)
[2017-08-24 11:05] LABS: INTERNATIONAL NORMALIZED RATIO 1.1 RATIO; PROTHROMBIN TIME - PATIENT 11.3 SEC (9.8-11.6)
[2017-08-24 11:29] LABS: ALBUMIN 3.3 GM/DL (3.4-5.0)
[2017-08-24 11:30] LABS: ALT (GPT) 15 U/L (12-78); BICARBONATE 30.6 MEQ/L (21.0-32.0); BLOOD UREA NITROGEN 14 MG/DL (7-18); CALCIUM 8.7 MG/DL (8.5-10.1); CHLORIDE 104 MEQ/L (98-107); CREATININE 0.97 MG/DL (0.60-1.30); GLOMERULAR FILTRATION RATE 75 ML/MIN (>89); GLUCOSE,RANDOM 194 MG/DL (74-106); MAGNESIUM 1.8 MG/DL (1.5-2.5); SODIUM (NA) 141 MEQ/L (136-145)
[2017-08-24 11:33] LABS: ALKALINE PHOSPHATASE 97 U/L (45-117); AST (GOT) 16 U/L (15-37); TOTAL BILIRUBIN ADULT 0.6 MG/DL (0.2-1.0); TOTAL PROTEIN 6.9 GM/DL (6.4-8.2); TROPONIN I LESS THAN 0.02 NG/ML (0.02-0.05)
--- NOTE | 2017-08-24 12:36 | RADRPT ---
EXAM DATE/TIME: 08/24/2017 12:03 [facility] COMPARISON: No previous studies available for comparison. INDICATIONS : Abdominal pain,diffuse pain,diarrhea IV CONTRAST: 85 cc Omnipaque 350 (iohexol) IV ORAL CONTRAST: No oral contrast ingested. RADIATION DOSE: 7.57 CTDIvol (mGy) MEDICAL HISTORY : Cardiovascular disease. Hypertension. Carcinoma, colon. SURGICAL HISTORY : Colon resection. Colostomy. ENCOUNTER: Initial ACUITY: 1 day PAIN SCALE: 5/10 LOCATION: Abdomen TECHNIQUE: Volumetric scanning of the abdomen and pelvis was performed. Using automated exposure control and ad justment of the mA and/or kV according to patient size, radiation dose was kept as low as reasonably achievable to obtain optimal diagnostic quality images. DICOM format image data is available electro nically for review and comparison. FINDINGS: LOWER LUNGS: The visualized lower lungs are clear. LIVER: Homogeneous density without lesion. There is no dilation of the biliary tree. No calcified gallston es. SPLEEN: Normal size without lesion. PANCREAS: Within normal limits. KIDNEYS: Normal in size and shape. There is no mass, stone or hydronephrosis. ADRENAL GLANDS: Within normal limits. VASCULAR: There is no aortic aneurysm. BOWEL/MESENTERY: Anastomotic sutures in the rectum and small bowel the right upper quadrant.. Scattered diverticulosis . There is no free intraperitoneal air or fluid. ABDOMINAL WALL: Within normal limits. RETROPERITONEUM: There is no lymphadenopathy. BLADDER: No wall thickening or mass. REPRODUCTIVE: Prostate gland mildly enlarged. INGUINAL: There is no lymphadenopathy or hernia. MUSCULOSKELETAL: Prominent degenerative changes lumbar spine. CONCLUSION: 1. No acute inflammatory process. 2. Evidence of previous bowel surgery. 3. A few scattered diverticula without diverticulitis. 4. Enlarged prostate gland. Beltran Wills MD on August 24, 2017 at 12:30 Board Certified Radiologist. This report was verified electronically.
--- NOTE | 2017-08-24 12:42 | PD ---
HPI Chief Complaint: Chest Pain Time Seen by Provider: 10:05 Travel History International Travel<30 days: No Contact w/Intl Traveler<30days: No Traveled to known affect area: No History of Present Illness HPI 77-year-old male arrives with a complaint of chest pain for 1 day. He reports dyspnea. Patient reports sleeping all day long. Pain is now constant. Severity moderate. Location is left-sided. There is no migration of the pain. There is no exertional component. Patient also describes liquid diarrhea daily for the past few days. Any oral intake causes diarrhea. No vomiting. No blood in the stool. Past medical history includes coronary artery disease, hyperlipidemia and hypertension. PFSH Past Medical History Arthritis: No Asthma: No Autoimmune Disease: No Blood Disorders: No Anxiety: No Depression: No Heart Rhythm Problems: No Cancer: Yes (COLON CA) Cardiac Catheterization: Yes Cardiovascular Problems: Yes High Cholesterol: Yes Chemotherapy: Yes (2005) Chest Pain: Yes (before CABG) Congestive Heart Failure: No COPD: No Cerebrovascular Accident: No Coronary Artery Disease: Yes Diabetes: Yes Patient Takes Glucophage: Yes Diminished Hearing: No Endocrine: Yes Gastrointestinal Disorders: Yes GERD: No Genitourinary: Yes (incontinence) Hepatitis: No Hiatal Hernia: No Hypertension: Yes Immune Disorder: No Implanted Vascular Access Dvce: Yes Kidney Stones: No Musculoskeletal: Yes Neurologic: Yes (numbness and pain radiating down to toes, right foot drop ) Psychiatric: No Reproductive: No Respiratory: No Immunizations Current: Yes Migraines: No Myocardial Infarction: No Radiation Therapy: Yes (2005) Renal Failure: No Seizures: No Sickle Cell Disease: No Sleep Apnea: No Thyroid Disease: No Ulcer: No Tetanus Vaccination: > 5 Years Influenza Vaccination: Yes PNEUMOCCOCAL Vaccine (Year): 1 Past Surgical History Abdominal Surgery: Yes (LAR WITH HX OF COLOSTOMY) AICD: No Arteriovenous Shunt: No Body Medical Devices: STERNAL WIRES Cardiac Surgery: Yes (CABG 10 years ago) Coronary Artery Bypass Graft: Yes (X3) Ear Surgery: No Endocrine Surgery: No Eye Surgery: Yes (bilateral CATARACTS sx) Genitourinary Surgery: No Insulin Pump: No Joint Replacement: No Neurologic Surgery: Yes (L4-5 decompressive semi-lami w/ facet instability) Oral Surgery: No Pacemaker: No Thoracic Surgery: No Tonsillectomy: Yes (SINCE CHILD ) Other Surgery: Yes (COLON RESECTION 2006 WITH COLOSTOMY AND REVERSAL.) Social History Alcohol Use: Yes (occasionally) Tobacco Use: No Substance Use: No Allergies-Medications (Allergen,Severity, Reaction): Coded Allergies: No Known Allergies (Verified Allergy, Unknown, 08/24/17) Reported Meds & Prescriptions Reported Meds & Active Scripts Active [place] (Hydrocodone-Acetaminophen) 10-325 Mg Tab 1 Tab PO Q6H PRN Metformin (Metformin HCl) 1,000 Mg Tab 1,000 Mg PO BIDPC With meals Reported Aspirin 81 (Aspirin) 81 Mg Tabdr 81 Mg PO DAILY Review of Systems Except as stated in HPI: all other systems reviewed are Neg General / Constitutional: No: Fever Physical Exam Narrative GENERAL: 77-year-old M, well-nourished well-developed no acute distress Vital Signs Date Time Temp Pulse Resp B/P (MAP) Pulse Ox O2 Delivery O2 Flow Rate FiO2 08/24/17 10:10 89 18 139/79 (99) 98 Room Air 138/77 (97) 08/24/17 10:09 98 Room Air 08/24/17 10:09 18 98 Room Air 08/24/17 10:06 89 20 98 Room Air 08/24/17 09:47 98.2 92 20 133/77 (95) 98 SKIN: Warm and dry. HEAD: Atraumatic. Normocephalic. EYES: Pupils equal and round. No scleral icterus. No injection or drainage. ENT: No nasal bleeding or discharge. Mucous membranes pink and moist. NECK: Trachea midline. No JVD. CARDIOVASCULAR: Regular rate and rhythm. RESPIRATORY: No accessory muscle use. Clear to auscultation. Breath sounds equal bilaterally. GASTROINTESTINAL: Abdomen is soft. Distention present without tenderness. MUSCULOSKELETAL: Extremities without clubbing, cyanosis, or edema. No obvious deformities. NEUROLOGICAL: Awake and alert. No obvious cranial nerve deficits. Motor grossly within normal limits. Five out of 5 muscle strength in the arms and legs. Normal speech. PSYCHIATRIC: Appropriate mood and affect; insight and judgment normal. Data Data Last Documented VS Vital Signs Date Time Temp Pulse Resp B/P (MAP) Pulse Ox O2 Delivery O2 Flow Rate FiO2 08/24/17 10:10 89 18 139/79 (99) 98 Room Air 138/77 (97) 08/24/17 09:47 98.2 Orders Orders Electrocardiogram (08/24/17 10:05) B-Type Natriuretic Peptide (08/24/17 10:05) Ckmb (Isoenzyme) Profile (08/24/17 10:05) Complete Blood Count With Diff (08/24/17 10:05) Comprehensive Metabolic Panel (08/24/17 10:05) Magnesium (Mg) (08/24/17 10:05) Prothrombin Time / Inr (Pt) (08/24/17 10:05) Act Partial Throm Time (Ptt) (08/24/17 10:05) Troponin I (08/24/17 10:05) Lipase (08/24/17 10:05) Ecg Monitoring (08/24/17 10:05) Bilateral Bp Monitoring (08/24/17 10:05) Iv Access Insert/Monitor (08/24/17 10:05) Oximetry (08/24/17 10:05) Oxygen Administration (08/24/17 10:05) Sodium Chloride 0.9% Flush (Ns Flush) (08/24/17 10:15) Chest, Single Ap (08/24/17 ) Ct Abd/Pel W Iv Contrast(Rout) (08/24/17 ) CKMB (08/24/17 10:17) CKMB% (08/24/17 10:17) Iohexol 350 Inj (Omnipaque 350 Inj) (08/24/17 09:45) Admit Order (Ed Use Only) (08/24/17 12:49) Activity Bed Rest With Brp (08/24/17 12:49) Vital Signs (Adult) Q4H (08/24/17 12:49) Cardiac Rhythm .As Directed (08/24/17 12:49) Notify Dr: Other .PRN (08/24/17 12:49) Notify Dr. Parameters (08/24/17 12:49) Resp Oxygen Nasal Cannula (08/24/17 ) Ckmb (Isoenzyme) Profile (08/24/17 12:49) Ckmb (Isoenzyme) Profile (08/24/17 15:49) Troponin I (08/24/17 12:49) Troponin I (08/24/17 15:49) Electrocardiogram (08/24/17 12:49) Electrocardiogram (08/24/17 15:49) ^ Obtain (08/24/17 12:49) Sodium Chloride 0.9% Flush (Ns Flush) (08/24/17 13:00) Sodium Chloride 0.9% Flush (Ns Flush) (08/24/17 21:00) Acetaminophen (Tylenol) (08/24/17 13:00) Acetamin-Hydrocod 325-7.5 Mg ([place] 7.5 (08/24/17 13:00) Morphine Inj (Morphine Inj) (08/24/17 13:00) Ondansetron Inj (Zofran Inj) (08/24/17 13:00) Nitroglycerin Sl (Nitrostat Sl) (08/24/17 13:00) Aspirin (Aspirin) (08/25/17 09:00) Temazepam (Restoril) (08/24/17 13:00) Alprazolam (Xanax) (08/24/17 13:00) [place] / Telemetry ERIC.Q8H (08/24/17 12:49) Labs Laboratory Tests Test 08/24/17 10:17 White Blood Count 8.3 TH/MM3 Red Blood Count 4.97 MIL/MM3 Hemoglobin 14.6 GM/DL Hematocrit 43.5 % Mean Corpuscular Volume 87.6 FL Mean Corpuscular Hemoglobin 29.4 PG Mean Corpuscular Hemoglobin Concent 33.5 % Red Cell Distribution Width 14.9 % Platelet Count 323 TH/MM3 Mean Platelet Volume 9.4 FL Neutrophils (%) (Auto) 68.2 % Lymphocytes (%) (Auto) 16.3 % Monocytes (%) (Auto) 10.1 % Eosinophils (%) (Auto) 4.2 % Basophils (%) (Auto) 1.2 % Neutrophils # (Auto) 5.6 TH/MM3 Lymphocytes # (Auto) 1.4 TH/MM3 Monocytes # (Auto) 0.8 TH/MM3 Eosinophils # (Auto) 0.3 TH/MM3 Basophils # (Auto) 0.1 TH/MM3 CBC Comment DIFF FINAL Differential Comment Prothrombin Time 11.3 SEC Prothromb Time International Ratio 1.1 RATIO Activated Partial Thromboplast Time 25.0 SEC Blood Urea Nitrogen 14 MG/DL Creatinine 0.97 MG/DL Random Glucose 194 MG/DL Total Protein 6.9 GM/DL Albumin 3.3 GM/DL Calcium Level 8.7 MG/DL Magnesium Level 1.8 MG/DL Alkaline Phosphatase 97 U/L Aspartate Amino Transf (AST/SGOT) 16 U/L Alanine Aminotransferase (ALT/SGPT) 15 U/L Total Bilirubin 0.6 MG/DL Sodium Level 141 MEQ/L Potassium Level 4.2 MEQ/L Chloride Level 104 MEQ/L Carbon Dioxide Level 30.6 MEQ/L Anion Gap 6 MEQ/L Estimat Glomerular Filtration Rate 75 ML/MIN Total Creatine Kinase 122 U/L Creatine Kinase MB 2.9 NG/ML Troponin I LESS THAN 0.02 NG/ML B-Type Natriuretic Peptide 27 PG/ML Lipase 121 U/L [facility] Medical Decision Making Medical Screen Exam Complete: Yes Emergency Medical Condition: Yes Medical Record Reviewed: Yes Differential Diagnosis NSTEMI, unstable angina, coronary vasospasm, PE, PTX, aortic dissection, pericarditis, myocarditis, endocarditis, PNA, esophageal disease, aneurysm, musculoskeletal etiologies, anxiety, cocaine/sympathomimetic abuse Narrative Course CBC & BMP Diagram 08/24/17 10:17 Total Protein 6.9, Albumin 3.3 L, Calcium Level 8.7, Magnesium Level 1.8, Alkaline Phosphatase 97, Aspartate Amino Transf (AST/SGOT) 16, Alanine Aminotransferase (ALT/SGPT) 15, Total Bilirubin 0.6 BNP 27 Tn < 0.02 Lipase 121 INR 1.1 EKG: sinus, no ischemic injury pattern Last Impressions Chest X-Ray 08/24/17 0000 Signed Impressions: Service Date/Time: Thursday, August 24, 2017 10:18 - CONCLUSION: No acute disease. Trenton Griffiths MD CT shows no acute abdominopelvic disease Chest pain center evaluation considered most appropriate disposition for the patient. Pt agreeable with plan. Diagnosis Primary Impression: Chest pain Qualified Codes: R07.9 - Chest pain, unspecified Additional Impression: Diarrhea Qualified Codes: R19.7 - Diarrhea, unspecified Admitting Information Admitting Physician Requests: Observation Brayan Jasso MD Aug 24, 2017 12:42
[2017-08-24] MEDS ORDERED: MORPHINE SULFATE 4 MG/ML INJ IV PUSH PRN (13:00)
[2017-08-24] MEDS ORDERED: NITROGLYCERIN 0.4 MG SL 25 TABS/BTL SL PRN (13:00)
[2017-08-24] MEDS ORDERED: SODIUM CHLORIDE 0.9% FLUSH 10 ML FLUSH IV FLUSH PRN (13:00)
[2017-08-24] MEDS ORDERED: TEMAZEPAM 15 MG CAP PO PRN (13:00)
[2017-08-24] MEDS ORDERED: ONDANSETRON HCL 4 MG/2 ML VIAL IV PUSH PRN (13:00)
[2017-08-24] MEDS ORDERED: ALPRAZolam 0.25 MG TAB PO PRN (13:00)
[2017-08-24] MEDS ORDERED: ACETAMINOPHEN 500 MG CPLT PO PRN (13:00)
[2017-08-24] MEDS ORDERED: DEXTROSE 50% IN WATER 50 ML VIAL(D50) IV PUSH PRN (14:00)
[2017-08-24] MEDS ORDERED: GLUCAGON 1 MG/ML VIAL OTHER PRN (14:00)
[2017-08-24 14:11] LABS: TROPONIN I LESS THAN 0.02 NG/ML (0.02-0.05)
--- NOTE | 2017-08-24 14:20 | HHI.HP ---
HPI Primary Care Physician Non-Staff Chief Complaint Chest pain History of Present Illness This is a 77-year-old male that presents to ED via private vehicle with history of CAD and a three-vessel bypass in 2009 that presents complaining of chest discomfort. States that yesterday morning while watching television at home he developed a left-sided sharp chest discomfort. Less about 5 minutes. No other symptoms. Then the discomfort recurred this morning also while watching television sitting at home. Also lasted a few minutes. Denies shortness of breath, nausea, or diaphoresis. Has history of a bypass but states he was asymptomatic at that time. States he is being evaluated for some back issues and ended up having cardiac testing revealing the need of a bypass. States he has not seen a boiler house supervisor since his bypass. Cannot recall being on statin medication. States he is only taking an aspirin and metformin. Currently denies chest discomfort. Denies recent illness. Denies fevers or chills. Review of Systems General: Patient denies fevers, chills, and recent travel. HEENT: Patient denies headache, sore throat, difficulty swallowing. Cardiovascular: Has the chest discomfort as mentioned above. Denies sensation of heart beating rapidly or irregularly. No syncope. Denies diaphoresis. Respiratory: Denies shortness of breath or inspirational chest discomfort. Denies coughing wheezing or hemoptysis. GI: Has had either diarrhea or normal bowel movements over the last month. Diarrhea can be essentially watery or just loose stool. Patient denies nausea, vomiting, constipation, abdominal pain, bloody stools. Musculoskeletal: Patient denies joint pain or edema. Denies calf pain or edema. Neurovascular: Patient denies numbness, tingling, weakness in extremities. Denies headache. Endocrine: Denies polyuria and polydipsia. Hematologic: Denies easy bruising. Skin: Denies rash or itching. Past Family Social History Allergies: Coded Allergies: No Known Allergies (Verified Allergy, Unknown, 08/24/17) Past Medical History CAD with three-vessel bypass in 2009. Diabetes. Hyperlipidemia and states he has never been on medication that he can recall. Chronic back pain. Denies hypertension. Past Surgical History Three-vessel bypass in 2009. He has had back surgery. Reported Medications Reported Meds & Active Scripts Active Metformin (Metformin HCl) 1,000 Mg Tab 1,000 Mg PO BIDPC With meals Reported Aspirin 81 (Aspirin) 81 Mg Tabdr 81 Mg PO DAILY Active Ordered Medications Current Medications Medications (Trade) Dose Ordered Sig/[place] Route Start Time Stop Time Status Last Admin (NS Flush) 2 ml UNSCH PRN IV FLUSH 08/24/17 13:00 (NS Flush) 2 ml BID IV FLUSH 08/24/17 21:00 (Tylenol) 500 mg Q4H PRN PO 08/24/17 13:00 ([place] 7.5-325 Mg) 1 tab Q4H PRN PO 08/24/17 13:00 (Morphine Inj) 2 mg Q4H PRN IV PUSH 08/24/17 13:00 (Zofran Inj) 4 mg Q6H PRN IV PUSH 08/24/17 13:00 (Nitrostat Sl) 0.4 mg Q5M PRN SL 08/24/17 13:00 (Aspirin) 325 mg DAILY PO 08/25/17 09:00 (Restoril) 15 mg HS PRN PO 08/24/17 13:00 (Xanax) 0.25 mg Q8H PRN PO 08/24/17 13:00 (D50w (Vial) Inj) 50 ml UNSCH PRN IV PUSH 08/24/17 14:00 (Glucagon Inj) 1 mg UNSCH PRN OTHER 08/24/17 14:00 (NovoLOG SUPPLEMENTAL SCALE) 1 ACHS SLIDING SCALE SQ 08/24/17 17:00 Family History Denies family history of CAD. Social History Non-smoker. Denies alcohol or illicit drug use. Physical Exam Vital Signs Vital Signs Date Time Temp Pulse Resp B/P (MAP) Pulse Ox O2 Delivery O2 Flow Rate FiO2 08/24/17 13:20 97.8 78 17 156/88 (110) 99 Room Air 08/24/17 10:10 89 18 139/79 (99) 98 Room Air 138/77 (97) 08/24/17 10:09 98 Room Air 08/24/17 10:09 18 98 Room Air 08/24/17 10:06 89 20 98 Room Air 08/24/17 09:47 98.2 92 20 133/77 (95) 98 Physical Exam GENERAL: This is a well-nourished, well-developed patient, in no apparent distress. Patient speaks in clear complete sentences. Patient is pleasant. HEENT: Head is atraumatic and normocephalic. Neck is supple without lymphadenopathy and trachea is midline. No JVD or carotid bruits. CARDIOVASCULAR: Regular rate and rhythm without murmurs, gallops, or rubs. RESPIRATORY: Clear to auscultation. Breath sounds equal bilaterally. No wheezes , rales, or rhonchi. Chest wall is nontender. No use of accessory muscles. GASTROINTESTINAL: Abdomen is nontender, nondistended. Abdomen soft. No obvious pulsatile mass or bruit. No CVA tenderness. Strong femoral pulses bilaterally. Normal bowel sounds in all quadrants. MUSCULOSKELETAL: Patient is moving upper and lower extremities freely. No calf tenderness or edema, no Homans sign. Strong pulses in upper and lower extremities. NEUROLOGICAL: Patient is alert and oriented. Cranial nerves 2-12 are grossly intact. No focal deficits and speech is clear. SKIN: No rash and turgor is normal. Laboratory Laboratory Tests Test 08/24/17 10:17 08/24/17 13:25 White Blood Count 8.3 Red Blood Count 4.97 Hemoglobin 14.6 Hematocrit 43.5 Mean Corpuscular Volume 87.6 Mean Corpuscular Hemoglobin 29.4 Mean Corpuscular Hemoglobin Concent 33.5 Red Cell Distribution Width 14.9 Platelet Count 323 Mean Platelet Volume 9.4 Neutrophils (%) (Auto) 68.2 Lymphocytes (%) (Auto) 16.3 Monocytes (%) (Auto) 10.1 Eosinophils (%) (Auto) 4.2 Basophils (%) (Auto) 1.2 Neutrophils # (Auto) 5.6 Lymphocytes # (Auto) 1.4 Monocytes # (Auto) 0.8 Eosinophils # (Auto) 0.3 Basophils # (Auto) 0.1 CBC Comment DIFF FINAL Differential Comment Prothrombin Time 11.3 Prothromb Time International Ratio 1.1 Activated Partial Thromboplast Time 25.0 Blood Urea Nitrogen 14 Creatinine 0.97 Random Glucose 194 Total Protein 6.9 Albumin 3.3 Calcium Level 8.7 Magnesium Level 1.8 Alkaline Phosphatase 97 Aspartate Amino Transf (AST/SGOT) 16 Alanine Aminotransferase (ALT/SGPT) 15 Total Bilirubin 0.6 Sodium Level 141 Potassium Level 4.2 Chloride Level 104 Carbon Dioxide Level 30.6 Anion Gap 6 Estimat Glomerular Filtration Rate 75 Total Creatine Kinase 122 102 Creatine Kinase MB 2.9 Troponin I LESS THAN 0.02 LESS THAN 0.02 B-Type Natriuretic Peptide 27 Lipase 121 Result Diagram: 08/24/17 1017 08/24/17 1017 Imaging Last 48 hours Impressions Chest X-Ray 08/24/17 0000 Signed Impressions: Service Date/Time: Thursday, August 24, 2017 10:18 - CONCLUSION: No acute disease. Trenton Griffiths MD Abdomen/Pelvis CT 08/24/17 0000 Signed Impressions: Service Date/Time: Thursday, August 24, 2017 12:03 - CONCLUSION: 1. No acute inflammatory process. 2. Evidence of previous bowel surgery. 3. A few scattered diverticula without diverticulitis. 4. Enlarged prostate gland. Beltran Wills MD Course Initial EKG is sinus rhythm rate of 90 with right bundle branch block. Caprini VTE Risk Assessment Caprini VTE Risk Assessment: Mod/High Risk (score >= 2) Caprini Risk Assessment Model Point Value = 1 Point Value = 2 Point Value = 3 Point Value = 5 Age 41-60 Minor surgery BMI > 25 kg/m2 Swollen legs Varicose veins or History of unexplained or recurrent spontaneous Oral contraceptives or hormone replacement Sepsis (< 1 month) Serious lung disease, including pneumonia (< 1 month) Abnormal pulmonary function Acute myocardial infarction Congestive heart failure (< 1 month) History of inflammatory bowel disease Medical patient at bed rest Age 61-74 Arthroscopic surgery Major open surgery (> 45 min) Laparoscopic surgery (> 45 min) Malignancy Confined to bed (> 72 hours) Immobilizing plaster cast Central venous access Age >= 75 History of VTE Family history of VTE Factor V Leiden Prothrombin [id number] Lupus anticoagulant Anticardiolipin antibodies Elevated serum homocysteine Heparin-induced thrombocytopenia Other congenital or acquired thrombophilia Stroke (< 1 month) Elective arthroplasty Hip, pelvis, or leg fracture Acute spinal cord injury (< 1 month) Prophylaxis Regimen Total Risk Factor Score Risk Level Prophylaxis Regimen 0-1 Low Early ambulation 2 Moderate Order ONE of the following: *Sequential Compression Device (SCD) *Heparin 5000 units SQ BID 3-4 Higher Order ONE of the following medications: *Heparin 5000 units SQ TID *Enoxaparin/Lovenox 40 mg SQ daily (WT < 150 kg, CrCl > 30 mL/min) *Enoxaparin/Lovenox 30 mg SQ daily (WT < 150 kg, CrCl > 10-29 mL/min) *Enoxaparin/Lovenox 30 mg SQ BID (WT < 150 kg, CrCl > 30 mL/min) AND/OR *Sequential Compression Device (SCD) 5 or more Highest Order ONE of the following medications: *Heparin 5000 units SQ TID (Preferred with Epidurals) *Enoxaparin/Lovenox 40 mg SQ daily (WT < 150 kg, CrCl > 30 mL/min) *Enoxaparin/Lovenox 30 mg SQ daily (WT < 150 kg, CrCl > 10-29 mL/min) *Enoxaparin/Lovenox 30 mg SQ BID (WT < 150 kg, CrCl > 30 mL/min) AND *Sequential Compression Device (SCD) Assessment and Plan Assessment and Plan * Chest pain: Patient will continue to have serial cardiac enzymes and EKGs for ruling out purposes. He will be seen by Dr. Samy Welsh of cardiology in the chest pain center. Patient will have a Lexiscan in the morning if he rules out. Patient be discharged home if stress test is nonischemic with instructions to follow-up with her boiler house supervisor and primary care physician. He should also discuss with his outpatient boiler house supervisor statin therapy and beta- minda with history of CAD. Patient's return to ED for interval issues. * CAD: We will reassess with stress testing. Patient should be on statin therapy as well as beta-minda this complication. Needs discussed with cardiology. * Hyperlipidemia: Patient states he has never been on statin therapy however he likely was discharged with it after having his bypass but states he has never followed up with boiler house supervisor since. * Diabetes: Patient will be on sliding scale insulin coverage while in chest pain center. Needs hold metformin for [address] with IV contrast. Patient is stable at this time. He is agreeable to this plan. Deonte Mcrae Aug 24, 2017 14:20
[2017-08-24] MEDS: ACETAMINOPHEN/HYDROcodone 325 MG/7.5 MG TAB PO PRN ×2 (14:24→21:03)
[2017-08-24 17:39] LABS: TROPONIN I LESS THAN 0.02 NG/ML (0.02-0.05)
[2017-08-24] MEDS: INSULIN ASPART SUPPLEMENTAL SCALE SQ SCH ×2 (19:16→22:29)
--- NOTE | 2017-08-24 20:37 | EKG ---
Date Performed: 08/24/2017 Time Performed: 17:04:04 PTAGE: 77 years EKG: Sinus rhythm WITH PACs LEFT AXIS DEVIATION RIGHT BUNDLE BRANCH BLOCK ABNORMAL ECG PREVIOUS TRACING : 08/24/2017 13.22 No significant change from previous tracing noted. DOCTOR: Guero Marina Interpretating Date/Time 08/24/2017 20:36:52
--- NOTE | 2017-08-24 20:46 | EKG ---
Date Performed: 08/24/2017 Time Performed: 13:22:00 PTAGE: 77 years EKG: Sinus rhythm WITH OCCASIONAL SUPRAVENTRICULAR PREMATURE COMPLEXES LEFT AXIS DEVIATION RIGHT BUNDLE BRANCH BLOCK A BNORMAL ECG PREVIOUS TRACING : 08/24/2017 10.09 No significant change from previous tracing noted. DOCTOR: Guero Marina Interpretating Date/Time 08/24/2017 20:44:47
--- NOTE | 2017-08-24 20:55 | EKG ---
Date Performed: 08/24/2017 Time Performed: 10:09:44 PTAGE: 77 years EKG: Sinus rhythm WITH OCCASIONAL SUPRAVENTRICULAR PREMATURE COMPLEXES LEFT AXIS DEVIATION RIGHT BUNDLE BRANCH BLOCK A BNORMAL ECG PREVIOUS TRACING : 11/17/2016 12.22 Compared to previous tracing, right bundle branch block pat tern in now present. DOCTOR: Guero Marina Interpretating Date/Time 08/31/2017 12:51:36
[2017-08-24] MEDS: SODIUM CHLORIDE 0.9% FLUSH 10 ML FLUSH IV FLUSH SCH (21:03)
[2017-08-25 00:10] VITALS: PULSE 67
[2017-08-25 03:16] VITALS: BP 129/71; PULSE 76; RESP 18; TEMP 97.8; O2SAT 97
[2017-08-25 04:24] VITALS: PULSE 73
[2017-08-25] MEDS: INSULIN ASPART SUPPLEMENTAL SCALE SQ SCH (08:00)
[2017-08-25 08:13] VITALS: BP 135/65; PULSE 83; RESP 16; TEMP 97.6; O2SAT 97
[2017-08-25] MEDS ORDERED: REGADENOSON INJ 0.4 MG/5 ML SYR ONE (09:10)
--- NOTE | 2017-08-25 10:26 | RADRPT ---
EXAM DATE/TIME: 08/25/2017 08:56 [facility] COMPARISON: No previous studies available for comparison. INDICATIONS : Left sided chest pain. Angina. Coronary artery disease. DOSE: 25.4 mCi Tc99m Myoview at stress. 8.5 mCi Tc99m Myoview at rest. 0.4 mg Lexiscan STRESS SYMPTOMS: Dyspnea. EJECTION FRACTION: 58% MEDICAL HISTORY : Hypertension. SURGICAL HISTORY : CABG Back surgery. ENCOUNTER: Initial ACUITY: 1 day PAIN SCALE: 5/10 LOCATION: Left chest TECHNIQUE: The patient underwent pharmacologic stress with infusion of prescribed dose. Continuous ECG tracing was monitored during stress. Gated SPECT imaging was performed after stress and conventional SPECT i maging was performed at rest. The examination was performed on a SPECT/CT scanner, both attenuation and non-corrected datasets were reviewed. FINDINGS: DISTRIBUTION: The maximum perfused segment at stress is in the anterior wall. PERFUSION STUDY: The pattern of perfusion at stress is within normal limits. GATED STUDY: There is intact wall motion and thickening without hypokinetic or dyskinetic segments. CONCLUSION: No reversible perfusion defects. No focal wall motion abnormalities. RISK CATEGORY: 1-Low Risk. Fred Fagan MD on August 25, 2017 at 10:22 Board Certified Radiologist. This report was verified electronically.
--- NOTE | 2017-08-25 10:50 | HHI.DCPOC ---
Discharge Care Plan Diagnosis: (1) Chest pain (2) CAD (coronary artery disease) (3) Hx of CABG (4) Hypertension (5) Hyperlipidemia (6) DM (diabetes mellitus) (7) Diarrhea Goals to Promote Your Health DISCUSS WITH YOUR PRIMARY CARE PHYSICIAN THE NEED TO BE TAKING CHOLESTEROL MEDICATION(STATIN) AND BLOOD PRESSURE MEDICINE(DELMA INHIBITOR). DIABETICS CAN BENEFIT FROM THE DELMA INHIBITOR TO PROTECT THE KIDNEYS AND PATIENTS WITH HEART DISEASE SHOULD BE ON CHOLESTEROL MEDICATIONS UNLESS THERE IS A CONTRAINDICATION FOR IT. DO NOT TAKE METFORMIN FOR TWO DAYS. * To prevent worsening of your condition and complications * To maintain your health at the optimal level Directions to Meet Your Goals Take your medications as prescribed Follow your dietary instruction Follow activity as directed Keep your appointments as scheduled Take your immunizations and boosters as scheduled If your symptoms worsen call your PCP, if no PCP go to Urgent Care Center or Emergency Room Smoking is Dangerous to Your Health. Avoid second hand smoke Call the 24-hour hour crisis hotline for domestic abuse at Deonte Mcrae Aug 25, 2017 10:50
[2017-08-25] MEDS: ASPIRIN 325 MG TAB PO SCH ×2 (12:04→12:06)
[2017-08-25] MEDS: SODIUM CHLORIDE 0.9% FLUSH 10 ML FLUSH IV FLUSH SCH (12:06)
--- NOTE | 2017-08-25 18:44 | TR ---
Date Performed: 08/25/2017 Time Performed: 09:15:04 DOCTOR: Yu Pedroza DRUG LIST: INSULIN ASA NITRO CLINICAL HISTORY: DIABETES CHEST PAIN REASON FOR TEST: CHEST PAIN REASON FOR ENDING: OBSERVATION: CONCLUSION: COMMENTS: Lexiscan stress test was performed under standard four minute protocol. Radionuclide was injected one minute prior to ending the test. No electrocardiographic abormalities were present t o suggest ischemia. Nuclear imaging and interpretation are pending.
== END 2017-08-25 13:25 | disposition home or self-care (01) ==
LOC: NEPE 09:44 → NEDA 12:56 → NEPHCDU 16:10
PROVIDERS: ADMIT Internal Medicine Cardiovascular Disease; ATTEND Internal Medicine Cardiovascular Disease
DX: R07.9 Chest pain, unspecified (principal); I25.10 Atherosclerotic heart disease of native coronary artery without angina pectoris; I10 Essential (primary) hypertension; E78.5 Hyperlipidemia, unspecified; E11.9 Type 2 diabetes mellitus without complications; Z95.1 Presence of aortocoronary bypass graft; Z85.038 Personal history of other malignant neoplasm of large intestine
CPT/HCPCS: 71045; 74177; 78452; 80053; 82550; 82552; 82948; 83690; 83735; 83880; 84484; 85025; 85610; 85730; 87493; 93005; 93017; 96372; 99285; A9502; G0378; J1815; J2785; Q9967

== ENCOUNTER 2018-03-14 13:13 | Observation (INO) ==
[2018-03-14] MEDS ORDERED: Sodium Chlor 0.9% Inj 500 ML IV.SIG ONE (13:58)
--- NOTE | 2018-03-14 14:09 | ED ---
HPI General Chief Complaint: Chest Pain Stated Complaint: Chest pain/SOB/diarrhea/dizziness Time Seen by Provider: 03/14/18 13:49 History of Present Illness HPI narrative: Patient is 77-year-old male with history of CAD, CABG, colon cancer, last radiation 5 years ago. Today he presented for chest pain, no improved in the emergency room, abdominal pain for 2 months, with diarrhea. Patient requested colonoscopy in the emergency room. He denies nausea, vomiting. Episode of shortness of breath. Not in respiratory distress in the emergency room. Patient also mentioned that he was sitting in a bed, then get up from the bed and fell, possible loss consciousness. Denies any new pain. Related Data Home Medications Medication Instructions Recorded Confirmed aspirin [Aspirin Childrens] 81 mg PO DAILY 03/14/18 03/14/18 metformin 1,000 mg PO BID 03/14/18 03/14/18 Previous Rx's Medication Instructions Recorded meclizine 25 mg PO BID PRN #10 tab 03/15/18 Allergies Allergy/AdvReac Type Severity Reaction Status Date / Time No Known Allergies Allergy Unknown Uncoded 08/24/17 12:18 Review of Systems ROS: all other systems reviewed are negative Cardiovascular Reports chest pain Gastrointestinal Reports abdominal pain and Reports bloating PMFSH Medical History Medical History CAD (coronary artery disease) (Acute) Diabetes (Acute) Surgical History Surgical History History of colon resection (Acute) Previous back surgery (Acute) S/P CABG x 3 (Acute) Social History Social History Substance History: No History of Abuse Second Hand Smoke Exposure: No Smoking Status: Never smoker How Often Do You Have a Drink Containing Alcohol: Never Recent Travel in [facility] within the Last 8 Weeks: No Recent Out of Country Travel within the Last 8 Weeks: No Immunization History Tetanus Immunization: Unsure Exam Narrative Exam Narrative: GENERAL: 77-year-old male in no apparent distress SKIN: Focused skin assessment warm/dry. HEAD: Atraumatic. Normocephalic. EYES: Pupils equal and round. No scleral icterus. No injection or drainage. ENT: No nasal bleeding or discharge. Mucous membranes pink and moist. NECK: Trachea midline. No JVD. CARDIOVASCULAR: Regular rate and rhythm. No murmur appreciated. RESPIRATORY: No accessory muscle use. Clear to auscultation. Breath sounds equal bilaterally. GASTROINTESTINAL: Abdomen soft, abdomen is diffusely tender, distended. Hepatic and splenic margins not palpable. MUSCULOSKELETAL: No obvious deformities. No clubbing. No cyanosis. No edema. NEUROLOGICAL: Awake and alert. No obvious cranial nerve deficits. Motor grossly within normal limits. Normal speech. PSYCHIATRIC: Appropriate mood and affect; insight and judgment normal. Course Initial Documented Vital Signs Temperature 98.6 F 03/14/18 13:33 Pulse Rate 89 03/14/18 13:33 Respiratory Rate 22 03/14/18 13:33 Blood Pressure 132/63 03/14/18 13:33 Pulse Oximetry 97 03/14/18 13:33 Last Documented Vital Signs Temperature 97.7 F 03/15/18 04:00 Pulse Rate 70 03/15/18 04:00 Respiratory Rate 18 03/15/18 04:00 Blood Pressure 125/73 03/15/18 04:00 Pulse Oximetry 97 03/15/18 04:00 Medical Decision Making MDM Narrative Medical decision making narrative: Blood work, urine analysis, chest x-ray, abdominal CAT scan ordered. Reevaluation is pending. Labs noted, first set of troponin was negative, patient feels better, abdominal CAT scan did not show any acute pathology, patient will be placed on observation to chest pain center for further evaluation and treatment. Medical Screen Exam Complete: Yes Emergency Medical Condition: Yes Differential Diagnosis Differential Diagnosis: Chest pain rule out ACS, abdominal pain rule out colitis versus small bowel obstruction. Lab Data Result diagrams: 03/14/18 14:12 03/14/18 14:12 Lab Results 03/14/18 03/14/18 03/14/18 Range/Units 14:12 14:12 14:12 WBC 7.3 (4.0-11.0) th/mm3 RBC 4.13 L (4.50-5.90) mil/mm3 Hgb 12.9 L (13.0-17.0) gm/dL Hct 37.8 L (39.0-51.0) % MCV 91.7 (80.0-100.0) fL MCH 31.3 (27.0-34.0) pg MCHC 34.1 (32.0-36.0) % RDW 14.4 (11.6-17.2) % Plt Count 274 (150-450) th/mm3 MPV 9.2 (7.0-11.0) fL Neut % (Auto) 67.8 (16.0-70.0) % Lymph % (Auto) 17.4 (9.0-44.0) % [place] % (Auto) 11.1 H (0.0-8.0) % Eos % (Auto) 2.8 (0.0-4.0) % Baso % (Auto) 0.9 (0.0-2.0) % Neut # (Auto) 4.9 (1.8-7.7) th/mm3 Lymph # (Auto) 1.3 (1.0-4.8) th/mm3 [place] # (Auto) 0.8 (0.0-0.9) th/mm3 Eos # (Auto) 0.2 (0.0-0.4) th/mm3 Baso # (Auto) 0.1 (0.0-0.2) th/mm3 WBC Differential . Differential Comment Auto diff final Sodium 140 (136-145) meq/L Potassium 3.7 (3.5-5.1) meq/L Chloride 102 (98-107) meq/L Carbon Dioxide 28.7 (21.0-32.0) meq/L Anion Gap 9 (5-15) meq/L BUN 18 (7-18) mg/dL Creatinine 0.82 (0.60-1.30) mg/dL Estimated GFR Greater than 89 (>89) mL/min POC Glucose (68-110) mg/dl Random Glucose 218 H (74-106) mg/dL Calcium 8.4 L (8.5-10.1) mg/dL Total Bilirubin 0.5 (0.2-1.0) mg/dL AST 18 (15-37) U/L ALT 20 (12-78) U/L Alkaline Phosphatase 94 (45-117) U/L Total Creatine Kinase (39-308) U/L Troponin I Less than 0.02 L (0.02-0.05) ng/mL B-Natriuretic Peptide 103 H (0-100) pg/mL Total Protein 6.8 (6.4-8.2) g/dL Albumin 2.9 L (3.4-5.0) g/dL 03/14/18 03/14/18 03/14/18 Range/Units 17:30 17:44 21:10 WBC (4.0-11.0) th/mm3 RBC (4.50-5.90) mil/mm3 Hgb (13.0-17.0) gm/dL Hct (39.0-51.0) % MCV (80.0-100.0) fL MCH (27.0-34.0) pg MCHC (32.0-36.0) % RDW (11.6-17.2) % Plt Count (150-450) th/mm3 MPV (7.0-11.0) fL Neut % (Auto) (16.0-70.0) % Lymph % (Auto) (9.0-44.0) % [place] % (Auto) (0.0-8.0) % Eos % (Auto) (0.0-4.0) % Baso % (Auto) (0.0-2.0) % Neut # (Auto) (1.8-7.7) th/mm3 Lymph # (Auto) (1.0-4.8) th/mm3 [place] # (Auto) (0.0-0.9) th/mm3 Eos # (Auto) (0.0-0.4) th/mm3 Baso # (Auto) (0.0-0.2) th/mm3 WBC Differential Differential Comment Sodium (136-145) meq/L Potassium (3.5-5.1) meq/L Chloride (98-107) meq/L Carbon Dioxide (21.0-32.0) meq/L Anion Gap (5-15) meq/L BUN (7-18) mg/dL Creatinine (0.60-1.30) mg/dL Estimated GFR (>89) mL/min POC Glucose 148 H (68-110) mg/dl Random Glucose (74-106) mg/dL Calcium (8.5-10.1) mg/dL Total Bilirubin (0.2-1.0) mg/dL AST (15-37) U/L ALT (12-78) U/L Alkaline Phosphatase (45-117) U/L Total Creatine Kinase 55 (39-308) U/L Troponin I Less than 0.02 L Less than 0.02 L (0.02-0.05) ng/mL B-Natriuretic Peptide (0-100) pg/mL Total Protein (6.4-8.2) g/dL Albumin (3.4-5.0) g/dL 03/14/18 Range/Units 21:33 WBC (4.0-11.0) th/mm3 RBC (4.50-5.90) mil/mm3 Hgb (13.0-17.0) gm/dL Hct (39.0-51.0) % MCV (80.0-100.0) fL MCH (27.0-34.0) pg MCHC (32.0-36.0) % RDW (11.6-17.2) % Plt Count (150-450) th/mm3 MPV (7.0-11.0) fL Neut % (Auto) (16.0-70.0) % Lymph % (Auto) (9.0-44.0) % [place] % (Auto) (0.0-8.0) % Eos % (Auto) (0.0-4.0) % Baso % (Auto) (0.0-2.0) % Neut # (Auto) (1.8-7.7) th/mm3 Lymph # (Auto) (1.0-4.8) th/mm3 [place] # (Auto) (0.0-0.9) th/mm3 Eos # (Auto) (0.0-0.4) th/mm3 Baso # (Auto) (0.0-0.2) th/mm3 WBC Differential Differential Comment Sodium (136-145) meq/L Potassium (3.5-5.1) meq/L Chloride (98-107) meq/L Carbon Dioxide (21.0-32.0) meq/L Anion Gap (5-15) meq/L BUN (7-18) mg/dL Creatinine (0.60-1.30) mg/dL Estimated GFR (>89) mL/min POC Glucose 264 H (68-110) mg/dl Random Glucose (74-106) mg/dL Calcium (8.5-10.1) mg/dL Total Bilirubin (0.2-1.0) mg/dL AST (15-37) U/L ALT (12-78) U/L Alkaline Phosphatase (45-117) U/L Total Creatine Kinase (39-308) U/L Troponin I (0.02-0.05) ng/mL B-Natriuretic Peptide (0-100) pg/mL Total Protein (6.4-8.2) g/dL Albumin (3.4-5.0) g/dL Imaging Data Radiologist's impression: Chest X-Ray 03/14/18 13:58 CONCLUSION: Abdomen/Pelvis CT 03/14/18 14:04 CONCLUSION: 1. No acute findings. Mild constipation. 2. Numerous gallstones. Previous bowel resection in the small bowel and distal large bowel. Previous fusion lower lumbar spine. ECG Data EKG Prior to Arrival: No Attestation: I personally reviewed and interpreted this ECG as follows: Prior ECG tracings: available for review Interpretation: Normal sinus rhythm at rate [address] elevation, nonspecific ST changes. Discharge Plan Discharge Disposition Patient Disposition: 30 Still Patient Discharge Condition Condition: Fair Discharge Order Discharge Orders: Discharge Order (Routine); Ordered 03/15/18 Ordered By: Mary Ann Oates Discharge Details Diagnosis: Atypical chest pain, Vaso vagal episode Physicians Team ED Provider: Obinna Giron Primary Care Provider: Primary Care Eugenie Stauffer Attending Provider: Dominic Lin ED Status: Left Department Discharge Information Discharge Date/Time: 03/14/18 17:47
[2018-03-14 14:29] LABS: Baso # (Auto) 0.1 th/mm3 (0.0-0.2); Baso % (Auto) 0.9 % (0.0-2.0); Eos # (Auto) 0.2 th/mm3 (0.0-0.4); Eos % (Auto) 2.8 % (0.0-4.0); Hematocrit 37.8 % (39.0-51.0); Hemoglobin 12.9 gm/dL (13.0-17.0); Lymph # (Auto) 1.3 th/mm3 (1.0-4.8); Lymph % (Auto) 17.4 % (9.0-44.0); Mean Corpuscular HGB Conc 34.1 % (32.0-36.0); Mean Corpuscular Hemoglobin 31.3 pg (27.0-34.0); Mean Corpuscular Volume 91.7 fL (80.0-100.0); Mean Platelet Volume 9.2 fL (7.0-11.0); Mono # (Auto) 0.8 th/mm3 (0.0-0.9); Mono % (Auto) 11.1 % (0.0-8.0); Neut # (Auto) 4.9 th/mm3 (1.8-7.7); Neut % (Auto) 67.8 % (16.0-70.0); Platelet Count 274 th/mm3 (150-450); Red Blood Count 4.13 mil/mm3 (4.50-5.90); Red Cell Distribution Width 14.4 % (11.6-17.2); White Blood Count 7.3 th/mm3 (4.0-11.0)
--- NOTE | 2018-03-14 14:41 | XR ---
EXAM DATE: 03/14/2018 2:39 PM EST AGE/SEX: 77 years / Male INDICATIONS: Chest pain CLINICAL DATA: This is the patient's initial encounter. Patient reports that signs and symptoms have been present for 2 days and indicates a pain score of 2/10. MEDICAL/SURGICAL HISTORY: . Cardiovascular disease. Hypertension. Carcinoma, rectal. . CABG COMPARISON: [facility] [place] SING[place] AP, 08/24/2017. . FINDINGS: A single AP view of the chest demonstrates the lungs to be symmetrically aerated without evidence of mass, infiltrate or effusion. The cardiomediastinal contours are unremarkable. Postoperative CABG. N o acute findings. Osseous structures are intact. CONCLUSION: Electronically signed by: Shiva Izquierdo MD 03/14/2018 2:40 PM EST
--- NOTE | 2018-03-14 14:54 | CT ---
EXAM DATE: 03/14/2018 2:39 PM EST AGE/SEX: 77 years / Male INDICATIONS: Diarrhea CLINICAL DATA: This is the patient's initial encounter. Patient reports that signs and symptoms have been present for 3 months and indicates a pain score of 6/10. MEDICAL/SURGICAL HISTORY: Diabetes. Coronary Artery Disease Colon resection. CABG. Back Surge ry RADIATION DOSE: 12.54 CTDI (mGy) COMPARISON: [facility] – [place], CT ABDOMEN & PELVIS W CONTRAST, 08/24/2017. . TECHNIQUE: Multiple contiguous axial images were obtained through the abdomen. Images were obtained using multiple row detector helical technique. Using automated exposure control and adjustment of the mA and/or kV according to patient size, radiation dose was kept as low as reasonably achievable to o btain optimal diagnostic quality images. DICOM format image data is available electronically for rev iew and comparison. FINDINGS: Lung bases are clear. No acute findings in the liver, spleen, adrenals, kidneys or pancreas. Numerous gallstones. There is no free fluid or free air. No bowel obstruction. Appendix appears normal. There is mild cons tipation. No acute bony abnormality. Previous fusion across L4-5. 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 CONCLUSION: 1. No acute findings. Mild constipation. 2. Numerous gallstones. Previous bowel resection in the small bowel and distal large bowel. Previous fusion lower lumbar spine. Electronically signed by: Shiva Izquierdo MD 03/14/2018 2:53 PM EST
[2018-03-14 14:55] LABS: Albumin 2.9 g/dL (3.4-5.0); Anion Gap 9 meq/L (5-15); Aspartate Aminotransferase 18 U/L (15-37); Blood Urea Nitrogen 18 mg/dL (7-18); Calcium 8.4 mg/dL (8.5-10.1); Carbon Dioxide 28.7 meq/L (21.0-32.0); Chloride 102 meq/L (98-107); Glomerular Filtration Rate Greater Than 89 mL/min (>89); Glucose,Random 218 mg/dL (74-106); Potassium 3.7 meq/L (3.5-5.1); Sodium 140 meq/L (136-145)
[2018-03-14 14:56] LABS: Alanine Aminotransferase 20 U/L (12-78)
[2018-03-14 15:00] LABS: Alkaline Phosphatase 94 U/L (45-117); Total Protein 6.8 g/dL (6.4-8.2)
[2018-03-14] MEDS ORDERED: Acetaminophen 500 MG Tablet PO PRN (16:11)
[2018-03-14] MEDS ORDERED: Dextrose 50% in Water 50 ML Vial IV.PUSH PRN (16:18)
--- NOTE | 2018-03-14 16:39 | P.HPCA ---
History of Present Illness Primary Care Physician: No Primary Care Physician Chief Complaint: Chest pain History of Present Illness: This is a 77-year-old male with history of CAD with three-vessel bypass in 2009 of the LAYNE to LAD, SVG to obtuse marginal, SVG to distal RCA that presents to ED with multiple complaints. No other complaints is that he developed a central /left-sided chest pressure earlier this morning. This occurred around 730 this morning at home. He states that he had just gotten up from bed and went to walk to the bathroom when he passed out. He had no sensations prior to having that syncopal episode. Denies headache. Denies striking his head. States he believes he caught himself against a wall with his arm. Currently no arm pain or neck pain. He has back pain but states has been chronic and had a lumbar fusion over a year ago. Continues to follow specialist for his back pain. He actually at this time is requesting more pain medication for his back. States at home the discomfort is controlled with Lortab. He also complains of chronic abdominal pain and diarrhea. 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 States he has history of colon cancer and had a resection years ago and has diarrhea however when he further describes his bowel movements he has episodes of constipation mixed in with episodes of where his stool just seems to leak out of his rectum. It happens enough to be starting to wet diaper. Denies blood in stool. Denies large amount of watery stool. States it is just stool that will leak out. As far as the chest pain, it was a pressure. It lasted about 15 -20 minutes after the syncopal episode which sounds more vasovagal. He recalls being a little short of breath but states he also has become more short of breath with activity recently. He has not seen a community center director on outpatient basis since having his bypass in 2009. He was seen by cardiology in the chest pain center in August 2017 and had a nonischemic Lexiscan. He is also complaining of diarrhea at the time and was concerned his C. difficile and was tested and was negative. Currently his only complaint is back pain. History of CAD with three-vessel bypass 2009. Hyperlipidemia however he states he has never been on statin therapy although he was reminded on his last discharge to follow-up to be started on statin therapy and to have it monitored. Cannot recall ever being on beta-minda. Denies hypertension. Denies diabetes. There is family history of CAD per He is a lifetime non-smoker. - Diagnosis (1) Chest pain (2) CAD (coronary artery disease) (3) Status post coronary artery bypass graft (4) Chronic back pain (5) Hyperlipidemia Review of Systems General: Patient denies fevers, chills, and recent travel. HEENT: Patient denies headache, sore throat, difficulty swallowing. Cardiovascular: Has the chest discomfort as mentioned above. Denies sensation of heart beating rapidly or irregularly. No syncope. Denies diaphoresis. Respiratory: He was short of breath today but also states he has been a little short of breath with activity recently. Denies inspirational chest discomfort. Denies coughing wheezing or hemoptysis. GI: Patient denies nausea, vomiting, diarrhea, abdominal pain, bloody stools. Musculoskeletal: Chronic low back pain. Patient denies joint pain or edema. Denies calf pain or edema. Neurovascular: Patient states that he blacked out when trying to sit up from bed this morning. States immediately was feeling dizzy, room was spinning, and then second later he was on the floor. Denies head injury. Denies neck pain. Patient denies numbness, tingling, weakness in extremities. Denies headache. Endocrine: Denies polyuria and polydipsia. Hematologic: Denies easy bruising. Skin: Denies rash or itching. PMFSH - History History Provided By: Patient - Medical History Medical History: Medical History (Last Updated 03/14/18 @ 14:03 by Gabbie Mahan RN) CAD (coronary artery disease) Diabetes - Surgical History Surgical History: Surgical History (Last Updated 03/14/18 @ 14:03 by Gabbie Mahan RN) History of colon resection Previous back surgery S/P CABG x 3 - Tobacco History Smoking Status: Never smoker - Alcohol History How Often Do You Have a Drink Containing Alcohol: Never - Substance Use History Substance History: No History of Abuse - Travel History Recent Travel in the [place] Within the Last 8 Weeks: No Recent Travel Out of the Country Within the Last 8 Weeks: No - Immunization History Tetanus Immunization: Unsure Medications and Allergies Active Medications: Active Medications Acetaminophen (Tylenol) 500 mg PO Q6H PRN PRN Reason: pain scale 1-5 Hydrocodone Bitart/Acetaminophen ([place] 7.5/325) 1 tab PO Q6H PRN PRN Reason: pain scale 6-10 Aspirin (Aspirin) 325 mg PO DAILY VIRA Clonidine HCl (Catapres) 0.1 mg PO Q6H PRN PRN Reason: SBP >165 OR DBP > 110 Dextrose (D50w Vial) 50 ml IV.PUSH UNSCH PRN PRN Reason: PER HYPOGLYCEMIA PROTOCOL Glucagon (Glucagon Inj) 1 mg OTHER PRN PRN PRN Reason: for Hypoglycemia Protocol Insulin Human Regular (Novolin R Correctional Sugar Inj) 0 units SQ ACHS VIRA; Protocol Pantoprazole Sodium (Protonix) 40 mg PO DAILY VIRA Sodium Chloride (Ns Flush) 2 ml IV.FLUSH BID VIRA Sodium Chloride (Ns Flush) 2 ml IV.FLUSH PRN PRN PRN Reason: FLUSH AFTER USING IV ACCESS Allergies Allergy/AdvReac Type Severity Reaction Status Date / Time No Known Allergies Allergy Unknown Uncoded 08/24/17 12:18 Home Medications Medication Instructions Recorded Confirmed Type aspirin [Aspirin Childrens] 81 mg PO DAILY 03/14/18 03/14/18 History metformin 1,000 mg PO BID 03/14/18 03/14/18 History Exam Vital signs: Vital Signs 03/14/18 13:33 03/14/18 13:58 03/14/18 14:01 Temperature 98.6 F Pulse Rate 89 79 Respiratory Rate 22 12 Blood Pressure 132/63 115/92 H Pulse Oximetry 97 96 98 Intake & Output 03/13/18 03/14/18 03/14/18 18:59 06:59 18:59 Intake Total 500 / 500 Balance 500 / 500 Weight 83.915 kg Intake: IV 500 / 500 NS Inj 500 ML @ 500 mls/hr IV. 500 / 500 SIG ONCE ONE Rx#:[id number] Narrative: GENERAL: This is a well-nourished, well-developed patient, in no apparent distress. Patient speaks in clear complete sentences. Patient is pleasant. HEENT: Head is atraumatic and normocephalic. Neck is supple without lymphadenopathy and trachea is midline. No JVD or carotid bruits. CARDIOVASCULAR: Regular rate and rhythm without murmurs, gallops, or rubs. RESPIRATORY: Clear to auscultation. Breath sounds equal bilaterally. No wheezes , rales, or rhonchi. Chest wall is nontender. No use of accessory muscles. GASTROINTESTINAL: Abdomen is nontender(specifically no right upper quadrant tenderness), nondistended. Abdomen soft. No obvious pulsatile mass or bruit. No CVA tenderness. Strong femoral pulses bilaterally. Normal bowel sounds in all quadrants. MUSCULOSKELETAL: Patient is moving upper and lower extremities freely. No calf tenderness or edema, no Homans sign. Strong pulses in upper and lower extremities. NEUROLOGICAL: Patient is alert and oriented. Cranial nerves 2-12 are grossly intact. No focal deficits and speech is clear. SKIN: No rash and turgor is normal. Results 03/14/18 14:12 03/14/18 14:12 Cardiac Enzymes 03/14/18 03/14/18 Range/Units 14:12 14:12 AST 18 (15-37) U/L Troponin I Less than 0.02 L (0.02-0.05) ng/mL B-Natriuretic Peptide 103 H (0-100) pg/mL Coagulation 03/14/18 Range/Units 14:12 B-Natriuretic Peptide 103 H (0-100) pg/mL CBC 03/14/18 Range/Units 14:12 WBC 7.3 (4.0-11.0) th/mm3 RBC 4.13 L (4.50-5.90) mil/mm3 Hgb 12.9 L (13.0-17.0) gm/dL Hct 37.8 L (39.0-51.0) % Plt Count 274 (150-450) th/mm3 Neut # (Auto) 4.9 (1.8-7.7) th/mm3 Lymph # (Auto) 1.3 (1.0-4.8) th/mm3 [place] # (Auto) 0.8 (0.0-0.9) th/mm3 Eos # (Auto) 0.2 (0.0-0.4) th/mm3 Baso # (Auto) 0.1 (0.0-0.2) th/mm3 Comprehensive Metabolic Panel 03/14/18 Range/Units 14:12 Sodium 140 (136-145) meq/L Potassium 3.7 (3.5-5.1) meq/L Chloride 102 (98-107) meq/L Carbon Dioxide 28.7 (21.0-32.0) meq/L BUN 18 (7-18) mg/dL Creatinine 0.82 (0.60-1.30) mg/dL Calcium 8.4 L (8.5-10.1) mg/dL AST 18 (15-37) U/L ALT 20 (12-78) U/L Alkaline Phosphatase 94 (45-117) U/L Total Protein 6.8 (6.4-8.2) g/dL Albumin 2.9 L (3.4-5.0) g/dL Intake and Output 03/14/18 03/14/18 03/14/18 06:59 14:59 22:59 Intake Total 500 / 500 Balance 500 / 500 Intake: IV 500 / 500 NS Inj 500 ML @ 500 mls/hr IV. 500 / 500 SIG ONCE ONE Rx#:[id number] Other: Weight 83.915 kg Patient Weight 03/15/18 06:59 Weight 83.915 kg - Imaging and Cardiology Imaging: Impressions Chest X-Ray 03/14/18 13:58 CONCLUSION: Abdomen/Pelvis CT 03/14/18 14:04 CONCLUSION: 1. No acute findings. Mild constipation. 2. Numerous gallstones. Previous bowel resection in the small bowel and distal large bowel. Previous fusion lower lumbar spine. EKG interpretations - EKG EKG shows: sinus rhythm (Initial EKG is sinus rhythm without significant ST segment depressions or elevations.) Caprini VTE Risk Assessment Caprini VTE Risk Assessment: Moderate/High Risk (score >= 2) Caprini Risk Assessment Model: Point Value = 1 Point Value = 2 Point Value = 3 Point Value = 5 Age 41-60 Minor surgery BMI > 25 kg/m2 Swollen legs Varicose veins or History of unexplained or recurrent spontaneous Oral contraceptives or hormone replacement Sepsis (< 1 month) Serious lung disease, including pneumonia (< 1 month) Abnormal pulmonary function Acute myocardial infarction Congestive heart failure (< 1 month) History of inflammatory bowel disease Medical patient at bed rest Age 61-74 Arthroscopic surgery Major open surgery (> 45 min) Laparoscopic surgery (> 45 min) Malignancy Confined to bed (> 72 hours) Immobilizing plaster cast Central venous access Age >= 75 History of VTE Family history of VTE Factor V Leiden Prothrombin [id number] Lupus anticoagulant Anticardiolipin antibodies Elevated serum homocysteine Heparin-induced thrombocytopenia Other congenital or acquired thrombophilia Stroke (< 1 month) Elective arthroplasty Hip, pelvis, or leg fracture Acute spinal cord injury (< 1 month) Prophylaxis Regimen: Total Risk Factor Score Risk Level Prophylaxis Regimen 0-1 Low Early ambulation 2 Moderate Order ONE of the following: *Sequential Compression Device (SCD) *Heparin 5000 units SQ BID 3-4 Higher Order ONE of the following medications: *Heparin 5000 units SQ TID *Enoxaparin/Lovenox 40 mg SQ daily (WT < 150 kg, CrCl > 30 mL/min) *Enoxaparin/Lovenox 30 mg SQ daily (WT < 150 kg, CrCl > 10-29 mL/min) *Enoxaparin/Lovenox 30 mg SQ BID (WT < 150 kg, CrCl > 30 mL/min) AND/OR *Sequential Compression Device (SCD) 5 or more Highest Order ONE of the following medications: *Heparin 5000 units SQ TID (Preferred with Epidurals) *Enoxaparin/Lovenox 40 mg SQ daily (WT < 150 kg, CrCl > 30 mL/min) *Enoxaparin/Lovenox 30 mg SQ daily (WT < 150 kg, CrCl > 10-29 mL/min) *Enoxaparin/Lovenox 30 mg SQ BID (WT < 150 kg, CrCl > 30 mL/min) AND *Sequential Compression Device (SCD) Assessment and Plan - Assessment (1) Chest pain Code(s): R07.9 - Chest pain, unspecified Status: Acute (2) CAD (coronary artery disease) Code(s): I25.10 - Atherosclerotic heart disease of [place] coronary artery without angina pectoris Status: Acute (3) Status post coronary artery bypass graft Code(s): Z95.1 - Presence of aortocoronary bypass graft Status: Acute (4) Chronic back pain Code(s): M54.9 - Dorsalgia, unspecified; G89.29 - Other chronic pain Status: Acute (5) Hyperlipidemia Code(s): E78.5 - Hyperlipidemia, unspecified Status: Acute - Plan * Chest pain: Patient will continue to have serial cardiac enzymes and EKGs for ruling out purposes. He will be seen by Dr. Samy Welsh of cardiology in the chest pain center and at that time further plan will be decided. He had a nonischemic Lexiscan August 25, 2017 in the chest pain center. Describes likely vasovagal episode this morning. We will get orthostatics. Patient will need to follow-up with cardiology on outpatient basis as well as a primary care physician. He should return to ED for interval issues. * CAD: Patient has history of three-vessel bypass. He needs a follow-up with community center director on outpatient basis after discharge. He should also discuss with community center director beta-minda and statin therapy. This was discussed with him in August as well. * Abdominal pain: Patient has had chronic abdominal pain. CT abdomen and pelvis obtained in the ED was read by radiologist as numerous gallstones. Previous bowel resection. Mild constipation. Abdomen on examination was nontender. It was soft. Bowel sounds are normal. He should follow-up with mold builder on outpatient basis. * Hyperlipidemia: Patient needs to be on statin therapy if he tolerates this. This should be discussed with PCP. *
[2018-03-14 17:37] VITALS: RESP 18
[2018-03-14] MEDS: Insulin NovoLIN Regular Correctional Sugar Inj SQ SCH (18:02)
[2018-03-14 18:35] LABS: Creatine Kinase 55 U/L (39-308)
[2018-03-15] MEDS: Insulin NovoLIN Regular Correctional Sugar Inj SQ SCH ×2 (00:42→07:56)
[2018-03-15 05:13] VITALS: BP 125/73; PULSE 70; TEMP 97.7; O2SAT 97
[2018-03-15] MEDS ORDERED: Aspirin 325 MG Tablet PO SCH (09:00)
--- NOTE | 2018-03-16 07:22 | ECG ---
Date Performed: 03/14/2018 Time Performed: 21:25:45 PTAGE: 77 years EKG: Sinus rhythm WITH OCCASIONAL SUPRAVENTRICULAR PREMATURE COMPLEXES MARKED LEFT AXIS DEVIATION ABNORMAL ECG Since PREVIOUS TRACING , no significant change noted DOCTOR: Yu Pedroza Interpretating Date/Time 03/16/2018 07:20:54
--- NOTE | 2018-03-16 07:23 | ECG ---
Date Performed: 03/14/2018 Time Performed: 17:16:06 PTAGE: 77 years EKG: Sinus rhythm WITH MARKED SINUS ARRHYTHMIA BORDERLINE ECG Since PREVIOUS TRACING , no significant change noted DOCTOR: Yu Pedroza Interpretating Date/Time 03/16/2018 07:21:59
--- NOTE | 2018-03-16 07:25 | ECG ---
Date Performed: 03/14/2018 Time Performed: 14:09:42 PTAGE: 77 years EKG: Sinus rhythm MARKED LEFT AXIS DEVIATION ABNORMAL ECG Since PREVIOUS TRACING , no longer RBBB PREVIOUS TRACIN08/24/2017 17.04 DOCTOR: Yu Pedroza Interpretating Date/Time 03/16/2018 07:23:43
== END 2018-03-15 09:31 | disposition home or self-care (01) ==
LOC: NEDA 13:13 → NEPC 13:13 → NEPFCDU 17:18
DX: K59.00 Constipation, unspecified; E11.9 Type 2 diabetes mellitus without complications; Z90.49 Acquired absence of other specified parts of digestive tract; Z95.1 Presence of aortocoronary bypass graft; Z85.038 Personal history of other malignant neoplasm of large intestine; K80.20 Calculus of gallbladder without cholecystitis without obstruction; E78.5 Hyperlipidemia, unspecified; I25.10 Atherosclerotic heart disease of native coronary artery without angina pectoris; G89.29 Other chronic pain; M54.9 Dorsalgia, unspecified; R07.89 Other chest pain; Z82.49 Family history of ischemic heart disease and other diseases of the circulatory system